=== PATIENT | male | born 1945 | race Caucasian/White ===

== ENCOUNTER 2017-10-26 20:05 | Emergency (ER) | payer MEDICARE ==
[2017-10-26] MEDS ORDERED: cloNIDine 0.1 MG TAB ONE (21:16)
[2017-10-26] MEDS ORDERED: Lisinopril 10 MG TAB ONE (21:16)
== END 2017-10-26 23:04 | disposition home or self-care (01) ==
LOC: SCSER 20:05
DX: I10 Essential (primary) hypertension (principal); F17.210 Nicotine dependence, cigarettes, uncomplicated
CPT/HCPCS: 99283

== ENCOUNTER 2017-12-22 13:00 | Inpatient (IN) | payer MEDICARE ==
[2017-12-25] MEDS ORDERED: CEFAZOLIN/Water 2 GM/20 ML SYRINGE ONE (06:12)
[2017-12-25] MEDS ORDERED: Heparin 5,000 UNITS/ML VIAL ONE ×2 (06:47→10:56)
[2017-12-25] MEDS ORDERED: Protamine Sulfate 50 MG/5 ML VIAL ONE (06:47)
[2017-12-25] MEDS ORDERED: Midazolam HCl 2 mg/2 ml Vial ONE (06:57)
[2017-12-25] MEDS ORDERED: Fentanyl 100 MCG/2 ML VIAL ONE (06:57)
[2017-12-25] MEDS ORDERED: PHENYLEPHRINE-NS 100 MCG/ML 10 ML SYRINGE ONE ×2 (06:58→14:25)
[2017-12-25] MEDS ORDERED: Heparin 10,000 UNITS/1 ML VIAL 30,000 UNITS in Sodium Chloride 0.9% 1,000 ML FS SCH (07:00)
[2017-12-25] MEDS ORDERED: HYDROcodone/Acetaminophen 5/325 mg Tablet PO PRN ×2 (08:26)
[2017-12-25] MEDS ORDERED: Ondansetron HCl/PF 4 MG/2 ML Vial IVP PRN (08:26)
[2017-12-25] MEDS ORDERED: Acetaminophen 325 MG TAB PO PRN (08:26)
[2017-12-25] MEDS ORDERED: Fentanyl 100 MCG/2 ML VIAL SLOW IVP PRN (08:26)
[2017-12-25] MEDS ORDERED: Promethazine HCl 25 MG/ML VIAL PR PRN (08:26)
[2017-12-25] MEDS ORDERED: Promethazine HCl 25 MG/ML VIAL IM PRN (08:26)
[2017-12-25] MEDS ORDERED: Rocuronium Bromide 50 MG/5 ML VIAL ONE (08:58)
[2017-12-25] MEDS ORDERED: Albumin 5% 500 ML ONE (10:42)
[2017-12-25] MEDS ORDERED: ePHEDrine/0.9% NaCl/PF SYRINGE 50 mg/10 ml ONE ×2 (12:59→14:25)
--- NOTE | 2017-12-25 13:45 | OP ---
DATE OF PROCEDURE: 12/25/2017 PROCEDURE PERFORMED: Left subclavian central line placement, repair of left femoral pseudoaneurysm w ith 8 mm Hemashield, reimplantation of profunda femoris, and superficial femoral arteries. PREOPERATIVE DIAGNOSIS: Left femoral pseudoaneurysm, status post aortobifemoral bypass. POSTOPERATIVE DIAGNOSIS: Left femoral pseudoaneurysm, status post aortobifemoral bypass. SURGEON: Rubio Gonzalez M.D. ANESTHESIA: General endotracheal anesthesia. INDICATIONS: The patient is a 72-year-old man who many years ago underwent an aortobifemoral bypass and has already had a pseudoaneurysm of the right groin repaired several years ago. Over the last 2 years, he has had increasing size of a pulsatile bulge in the left groin consistent with pseudoaneury sm. CT angiography and ultrasonography confirmed that he is now taken to the operating room for repa ir. FINDINGS: Complete disruption of the graft. A large profunda femoris with good backbleeding, relati vely small SFA with near complete occlusion proximally, but patent at the midportion with good back b leeding. A #5 Deanna catheter could be passed at 1 or 2 handbreadths below the knee. Post-procedur e, he had a palpable popliteal pulse, but not palpable pedal pulses. NARRATIVE REPORT: After informed consent was obtained, the patient was taken to the operating room a nd placed in supine position on the operating table. After induction of general anesthesia, the andres ent was placed in Trendelenburg and his left upper chest was prepped and draped in sterile fashion by the Seldinger technique. A triple-lumen central line kit was used to place the left subclavian cent ral line for secure IV access in addition to his peripheral access. The line was secured and dressed . The patient's torso, groins and lower extremities were then prepped and draped in sterile fashion. A curvilinear incision paralleling the left iliac fossa was made with a scalpel and electrocautery. The fibers of the external and internal obliques were divided and retroperitoneal plane was develop ed to expose the [place] vasculature in the graft. Combination of sharp electrocautery and blunt diss ection was used to isolate the [place] external iliac and left limb of the graft. Both were looped wi th umbilical tapes and then attention was turned to the groin. A longitudinal incision was made dist al to the bulge and skin. Superficial femoral artery was identified deep to that and then followed u p along the plane of Leriche, pseudoaneurysm capsule was identified and it was exposed through sharp dissection. The superficial femoral artery was looped for distal control and then when the profunda could be identified, the veins overlying it were ligated and divided and the profunda was looped. Af ter adequate circulation time of heparin, proximal and distal control was achieved with vessel loops in the groin and a vascular clamp in the iliac fossa. The pseudoaneurysm was then entered and thromb otic material was evacuated. Backbleeding from the remnant of the orifice of the common femoral were the disrupted grafted at one point had been anastomosed and it was controlled with sucker. An attem pt was made briefly to intubate that orifice with a #5 Deanna catheter for endoluminal control, but the catheter could not be threaded. With direct pressure held there, the pseudoaneurysm capsule was dissected out more and excised. The profunda was followed proximally and could be appreciated that w hat had been loop was a very small branch of the profunda, it was followed more proximally to a rathe r large vessel and on clamping yet achieved adequate control. The disrupted aortobifemoral graft is identified and dissected out and mobilized, it was freshened up with scissors. An 8 mm Hemashield gr aft was beveled to make for size match and then anastomosed end-to-end to the old graft that suture l ine appeared to be hemostatic when tested. The profunda was then spatulated to match an oblique christensen section of the new graft and end-to-end anastomosis was constructed there. Upon examination of the s uperficial femoral, it was somewhat rubbery, proximally it felt hard and completely occluded, but whe n followed it more distally it got soft. It was opened distally and #5 Deanna catheter could be pas sed well below the knee and there was good back bleeding from it. The transected stumps were oversew n and then a longitudinal arteriotomy was made in the mid SFA after controlling it distally with a va scular clamp. A segment of residual 8 mm graft material was anastomosed there end-to-side and then v ascular clamps were reapplied to the new graft material to the profunda and that length of graft to t he SFA was brought off of that graft. The vascular controls were released. Protamine was administer ed. When hemostasis was adequate, the wounds were irrigated. The iliac fossa wound was closed with #1 PDS for the fascial layers and subcutaneous and subcuticular Vicryl. The groin wound was irrigate d and closed in layers subcutaneous and subcuticular Vicryl. Both incisions were then reinforced wit h running nylon skin suture. The wounds were dressed and the patient was taken to the recovery area in stable condition. Estimated blood loss during the procedure was 1000 mL. The patient received 2500 mL of crystalloid a nd 500 mL of 5% albumin and a 778 mL of Cell Saver transfusion. Urine output was 615 mL. Instrument , needle, and sponge counts were correct.
[2017-12-25 13:55] LABS: Hemoglobin 11.7 g/dL (14.0-18.0); Mean Corpuscular HGB CONC 32.4 g/dL (32.0-36.0); Mean Corpuscular Hemoglobin 30.8 pg (27.0-31.0); Mean Corpuscular Volume 95.1 fl (80.0-94.0); Mean Platelet Volume 8.3 fL (7.4-10.4); Platelet Count 166 thou/uL (130-400); RBC Distribution Width 12.8 % (11.5-14.5); Red Blood Cell (RBC) Count 3.79 mill/uL (4.70-6.10); White Blood Cell (WBC) Count 20.2 thou/uL (4.8-10.8)
[2017-12-25 14:14] LABS: Band 8 % (5-11); Lymphocytes 7 % (21-51); MDiff Complete? YES; Monocytes 2 % (0-10); Neutrophil 83 % (42-75); PLT Morphology Comment Appears Adequate
[2017-12-25 14:17] LABS: Anion Gap 9 mmol/L (10-20); BUN (Urea Nitrogen) 16 mg/dL (8.4-25.7); Calc. Creatinine Clearance 73 mL/min (70-130); Calcium 7.3 mg/dL (7.8-10.44); Carbon Dioxide 22 mmol/L (23-31); Chloride 108 mmol/L (98-107); Estimated GFR-MDRD 81; Glucose 148 mg/dL (83-110); Potassium 4.2 mmol/L (3.5-5.1); Sodium 135 mmol/L (136-145)
[2017-12-25] MEDS ORDERED: Heparin 10,000 UNITS/ 10 ML VIAL ONE (14:25)
[2017-12-25] MEDS ORDERED: PROPOFOL 200 MG/20 ML VIAL ONE (14:25)
[2017-12-25] MEDS ORDERED: Glycopyrrolate 0.2 MG/ML 5 ML SYRINGE ONE (14:25)
[2017-12-25] MEDS ORDERED: Lidocaine 1% PF 5 ML VIAL ONE (14:25)
--- NOTE | 2017-12-25 14:45 | RAD ---
AP CHEST: Indication: Post line insertion. Comparison: 12-12-17 FINDINGS: There is a new left subclavian central venous catheter. There is post-surgical change of a prior CABG . No confluent airspace opacity is evident. No pleural effusion or pneumothorax. No acute osseous abn ormality is evident. IMPRESSION: No acute abnormality. POS: [facility]
[2017-12-25 14:47] VITALS: BMI 26.4
[2017-12-25] MEDS: Sodium Chloride 0.9% 1,000 ML IV SCH ×2 (15:09→21:24)
[2017-12-25] MEDS: Amlodipine 5 MG TAB PO SCH (15:11)
[2017-12-25] MEDS: Hydrochlorothiazide 25 MG TAB PO SCH (15:27)
[2017-12-25] MEDS: Lisinopril 20 MG TAB PO SCH (15:27)
[2017-12-25] MEDS: Atenolol 50 MG TAB PO SCH (15:27)
[2017-12-25] MEDS: NIFEdipine XL 30 MG TAB PO SCH (17:05)
[2017-12-25] MEDS: Atorvastatin Calcium 40 MG TAB PO SCH (21:21)
[2017-12-26] MEDS: Sodium Chloride 0.9% 1,000 ML IV SCH (02:25)
[2017-12-26 06:00] LABS: #Basophils 0.1 thou/uL (0.0-0.2); #Lymphocytes 0.7 thou/uL (1.20-3.40); #Monocytes 0.7 thou/uL (0.11-0.59); #Neutrophils 14.1 thou/uL (1.40-6.50); %Basophils 0.3 % (0.0-1.0); %Eosinophils 0.2 % (0.0-10.0); %Lymphocytes 4.7 % (21.0-51.0); %Monocytes 4.4 % (0.0-10.0); %Neutrophils 90.4 % (42.0-75.0); Hemoglobin 10.6 g/dL (14.0-18.0); Mean Corpuscular HGB CONC 32.8 g/dL (32.0-36.0); Mean Corpuscular Hemoglobin 31.3 pg (27.0-31.0); Mean Corpuscular Volume 95.5 fl (80.0-94.0); Mean Platelet Volume 8.5 fL (7.4-10.4); Platelet Count 136 thou/uL (130-400); RBC Distribution Width 12.8 % (11.5-14.5); Red Blood Cell (RBC) Count 3.38 mill/uL (4.70-6.10); White Blood Cell (WBC) Count 15.6 thou/uL (4.8-10.8)
[2017-12-26 06:36] LABS: Anion Gap 11 mmol/L (10-20); BUN (Urea Nitrogen) 18 mg/dL (8.4-25.7); Calc. Creatinine Clearance 76 mL/min (70-130); Calcium 8.1 mg/dL (7.8-10.44); Carbon Dioxide 25 mmol/L (23-31); Chloride 104 mmol/L (98-107); Estimated GFR-MDRD 78; Glucose 189 mg/dL (83-110); Potassium 4.5 mmol/L (3.5-5.1); Sodium 135 mmol/L (136-145)
[2017-12-26] MEDS: Amlodipine 5 MG TAB PO SCH (07:44)
[2017-12-26] MEDS: Atenolol 50 MG TAB PO SCH (07:44)
[2017-12-26] MEDS: Aspirin 325 MG TAB PO SCH (07:44)
[2017-12-26] MEDS: Hydrochlorothiazide 25 MG TAB PO SCH (07:45)
[2017-12-26] MEDS: NIFEdipine XL 30 MG TAB PO SCH (07:45)
[2017-12-26] MEDS: Lisinopril 20 MG TAB PO SCH (07:45)
[2017-12-26] MEDS ORDERED: Prevnar 13-Val Conj/PF 0.5 ML SYRINGE IM ONE (09:00)
--- NOTE | 2017-12-26 12:59 | CON ---
DATE OF CONSULTATION: 12/26/2017 HISTORY OF PRESENT ILLNESS: This is a 72-year-old gentleman postop in the ICU. Mr. Carl underwent a left femoral pseudoaneurysm repair. He is status post aortobifemoral bypass. He has had previous right-sided pseudoaneurysm repair done in the past, previous bypass surgery done . Postoperatively, he is doing well. He states he smokes about 3/4 pack a day for most of his life. He tells me, he is now going to quit smoking. Denies any cough, chest pain, chills, sweats, hemoptysis, wheezing, orthopnea or PND. PAST MEDICAL HISTORY: Pertinent for hypertension, coronary artery disease, peripheral vascular disea se, tobacco abuse. PAST SURGICAL HISTORY: Stent repair in the right femoral, colonoscopy, back surgery, CABG. Recent T emple visit, some kind of surgery in [place]. MEDICATIONS: His list of medicine are nifedipine 30, magnesium, lisinopril, vitamin, Lipitor 40, Ten ormin 50, aspirin, Norvasc 10. ALLERGIES: PLAVIX. 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 FAMILY HISTORY: Unremarkable. SOCIAL HISTORY: Otherwise unremarkable. REVIEW OF SYSTEMS: Ten point negative. PHYSICAL EXAMINATION: GENERAL: He is in no distress. VITAL SIGNS: Sats are 98, pulse 71, blood pressure 158/92. CHEST: No wheezing, no crackles. CARDIAC: Normal S1, S2. No gallops. ABDOMEN: Soft, no masses. LABORATORY DATA AND IMAGING: White count 15,000, H&H 10 and 32, platelet count is normal. Electroly kian are normal. X-ray was clear. Please note, I reviewed all his x-rays, images and report myself. I have reviewed all his past medical records. History is obtained entirely from the patient and the at the bedside. IMPRESSION: 1. Status post left pseudoaneurysm repair. 2. Hypertension. 3. coronary artery disease. 4. Peripheral vascular disease. 5. Tobacco abuse. PLAN: Once again, he was told strongly to refrain from smoking. Doing well. Continue neb treatment s, supportive care, PT. We will follow while in the ICU. Note, this is a consultation note 70 minutes in which 50% of time direct patient care at the bedside.
[2017-12-26] MEDS: Atorvastatin Calcium 40 MG TAB PO SCH (22:03)
[2017-12-27 06:14] VITALS: BP 169/74; TEMP 98.1
--- NOTE | 2017-12-27 07:16 | DIS ---
DATE OF ADMISSION: 12/25/2017 DATE OF DISCHARGE: 12/27/2017 PRINCIPAL DIAGNOSES: Left femoral pseudoaneurysm, status post aortobifemoral bypass grafting. PROCEDURES PERFORMED: Repair of left femoral pseudoaneurysm with 8 mm Hemashield graft, reimplantati on of profunda femoris and superficial femoral arteries on 12/25/2017. HISTORY OF PRESENT ILLNESS/HOSPITAL COURSE: The patient is a 72-year-old man who almost 20 years ago underwent aortobifemoral bypass grafting. He developed a right femoral pseudoaneurysm that required repair a few years ago and over the last couple of years he has been having increasing size of a pul satile bulge in the left groin. Physical exam and noninvasive imaging studies demonstrated the vascu lar nature of this consistent with a femoral pseudoaneurysm in association with the distal anastomosi s of that limb of the graft. He was brought in electively and underwent repair using a left iliac fo ssa incision to have retroperitoneal exposure to gain proximal control and then a hockey stick shaped incision in the proximal left thigh to gain distal control and then access to the disrupted limb of the aortobifemoral graft and the [place] vasculature. Length of 8 mm Hemashield graft was used to homar stomose the limb of the AVF graft to the profunda and then a second length of graft was taken from th at interposition graft down to the mid SFA. He had an uneventful overnight recovering in the Intensi ve Care Unit and was transferred to the telemetry unit on postoperative day #1. Today on postoperati ve day 2, he remains afebrile off of oxygen and getting around well. His wounds are clean and dry wi thout significant swelling and only a modest amount of bruising. He now has a palpable dorsalis pedi s pulse in his foot. He denies any leg weakness or paresthesias. I will plan on seeing him in the [facility] in around 10-14 days. I have described to him that it is permissible to shower and to gently w carmita the incisions, but to keep the wounds clean and dry and not soak in a tub bath. I have written h im a prescription for Vicodin as needed for pain and he is to resume his home medications.
[2017-12-27] MEDS: NIFEdipine XL 30 MG TAB PO SCH (08:01)
[2017-12-27] MEDS: Amlodipine 5 MG TAB PO SCH (08:01)
[2017-12-27] MEDS: Hydrochlorothiazide 25 MG TAB PO SCH (08:01)
[2017-12-27] MEDS: Atenolol 50 MG TAB PO SCH (08:01)
[2017-12-27] MEDS: Aspirin 325 MG TAB PO SCH (08:01)
[2017-12-27] MEDS: Lisinopril 20 MG TAB PO SCH (08:01)
== END 2017-12-27 10:34 | disposition home or self-care (01) | DRG 272 ==
LOC: SURG A 12-25 05:42 → CCU 12-25 13:45 → 2NO 12-26 20:31
PROVIDERS: ADMIT Thoracic Surgery (Cardiothoracic Vascular Surgery); ATTEND Thoracic Surgery (Cardiothoracic Vascular Surgery)
PROC: 04VL3DZ Restriction of Left Femoral Artery with Intraluminal Device, Percutaneous Approach (ICD-10-PCS; principal; 2017-12-25)
PROC: 05HY33Z Insertion of Infusion Device into Upper Vein, Percutaneous Approach (ICD-10-PCS; 2017-12-25)
DX: I72.4 Aneurysm of artery of lower extremity (principal); E78.2 Mixed hyperlipidemia; F17.210 Nicotine dependence, cigarettes, uncomplicated; I73.9 Peripheral vascular disease, unspecified; I10 Essential (primary) hypertension; I25.10 Atherosclerotic heart disease of native coronary artery without angina pectoris; Z95.1 Presence of aortocoronary bypass graft
CPT/HCPCS: 36415; 71045; 71046; 80048; 80076; 85025; 85027; 85610; 86850; 86900; 86901; 88304; 88305; 93005; 93010; A4216; C1769; G8978-GP-CL; G8979-GP-CJ; J1642; J1644; J2001; J2250; J2704; J2720; J3010; J7050; P9045

== ENCOUNTER 2017-12-22 13:04 | Outpatient (CLI) | payer MEDICARE ==
[2017-12-22 14:30] LABS: Hemoglobin 14.4 g/dL (14.0-18.0); Mean Corpuscular HGB CONC 34.1 g/dL (32.0-36.0); Mean Corpuscular Hemoglobin 31.5 pg (27.0-31.0); Mean Corpuscular Volume 92.6 fl (80.0-94.0); Mean Platelet Volume 7.9 fL (7.4-10.4); Platelet Count 294 thou/uL (130-400); RBC Distribution Width 12.4 % (11.5-14.5); Red Blood Cell (RBC) Count 4.57 mill/uL (4.70-6.10); White Blood Cell (WBC) Count 14.7 thou/uL (4.8-10.8)
[2017-12-22 14:34] LABS: INR-International Normal Ratio 0.9; Prothrombin Time 12.6 SEC (12.0-14.7)
[2017-12-22 14:53] LABS: ALT (SGPT) 30 U/L (8-55); AST (SGOT) 23 U/L (5-34); Albumin 4.1 g/dL (3.4-4.8); Alkaline Phosphatase 77 U/L (40-150); Anion Gap 14 mmol/L (10-20); BUN (Urea Nitrogen) 24 mg/dL (8.4-25.7); Bilirubin, Direct 0.2 mg/dL (0.1-0.3); Bilirubin, Total 0.4 mg/dL (0.2-1.2); Calc. Creatinine Clearance 0 mL/min (70-130); Calcium 9.6 mg/dL (7.8-10.44); Carbon Dioxide 25 mmol/L (23-31); Chloride 96 mmol/L (98-107); Estimated GFR-MDRD 69; Glucose 107 mg/dL (83-110); Potassium 3.9 mmol/L (3.5-5.1); Protein, Total 7.2 g/dL (5.8-8.1); Sodium 131 mmol/L (136-145)
--- NOTE | 2017-12-22 14:59 | RAD ---
PA AND LATERAL VIES CHEST: HISTORY: Preoperative evaluation. FINDINGS: There are changes of median sternotomy. The heart size is normal. The aorta is tortuous. The lungs are expanded without focal areas of consolidation, pneumothorax, or pleural effusions. There are de generative changes in the spine. IMPRESSION: No radiographic evidence of acute cardiopulmonary process. POS: [facility]
--- NOTE | 2018-02-25 08:34 | EKG ---
Test Reason : Blood Pressure : / mmHG Vent. Rate : 058 BPM Atrial Rate : 058 BPM P-R Int : 164 ms QRS Dur : 086 ms QT Int : 386 ms P-R-T Axes : 079 060 063 degrees QTc Int : 378 ms Sinus bradycardia with sinus arrhythmia Otherwise normal ECG When compared with ECG of 09-JUN-2006 17:17, Nonspecific T wave abnormality, worse in Anterior leads QT has shortened Confirmed by MAXINE MANLEY, HARLEY ([id number]) on 02/25/2018 8:33:55 AM Referred By: CHRIS Confirmed By:HARLEY GOODMAN MD
== END 2017-12-22 13:05 | disposition home or self-care (01) ==
LOC: LABBT 13:04
PROVIDERS: ATTEND Thoracic Surgery (Cardiothoracic Vascular Surgery)
DX: Z01.818 Encounter for other preprocedural examination (principal); I72.4 Aneurysm of artery of lower extremity
CPT/HCPCS: 71046; 80048; 80076; 85027; 85610; 86850; 86900; 86901; 93005; 93010

== ENCOUNTER 2019-02-07 18:15 | Inpatient (IN) | payer MEDICARE ==
[~2019-02-07 18:15] MED LIST: ISOVUE-370 76%-LOCM 1 ML ONE
[2019-02-07 18:51] LABS: #Basophils 0.1 thou/uL (0.0-0.2); #Eosinphils 0.2 thou/uL (0.0-0.7); #Lymphocytes 2.7 thou/uL (1.20-3.40); #Monocytes 0.8 thou/uL (0.11-0.59); #Neutrophils 10.8 thou/uL (1.40-6.50); %Basophils 0.7 % (0.0-1.0); %Eosinophils 1.5 % (0.0-10.0); %Lymphocytes 18.4 % (21.0-51.0); %Monocytes 5.8 % (0.0-10.0); %Neutrophils 73.6 % (42.0-75.0); Hemoglobin 12.7 g/dL (14.0-18.0); Mean Corpuscular HGB CONC 34.5 g/dL (32.0-36.0); Mean Corpuscular Hemoglobin 32.3 pg (27.0-31.0); Mean Corpuscular Volume 93.7 fL (78.0-98.0); Mean Platelet Volume 7.5 fL (7.4-10.4); Platelet Count 224 thou/uL (130-400); RBC Distribution Width 12.1 % (11.5-14.5); Red Blood Cell (RBC) Count 3.92 mill/uL (4.70-6.10); White Blood Cell (WBC) Count 14.6 thou/uL (4.8-10.8)
[2019-02-07 18:57] LABS: INR-International Normal Ratio 1.1; PTT 28.6 SEC (22.9-36.1); Prothrombin Time 13.8 SEC (12.0-14.7)
[2019-02-07 19:04] LABS: ALT (SGPT) 20 U/L (8-55); AST (SGOT) 16 U/L (5-34); Albumin 4.2 g/dL (3.4-4.8); Alkaline Phosphatase 66 U/L (40-150); Anion Gap 12 mmol/L (10-20); BUN (Urea Nitrogen) 29 mg/dL (8.4-25.7); Bilirubin, Total 0.4 mg/dL (0.2-1.2); Calc. Creatinine Clearance 0 mL/min (70-130); Calcium 9.2 mg/dL (7.8-10.44); Carbon Dioxide 25 mmol/L (23-31); Chloride 96 mmol/L (98-107); Estimated GFR-MDRD 46; Globulin 2.3 g/dL (2.4-3.5); Glucose 207 mg/dL (83-110); Potassium 4.3 mmol/L (3.5-5.1); Protein, Total 6.5 g/dL (5.8-8.1); Sodium 129 mmol/L (136-145)
[2019-02-07] MEDS ORDERED: Aspirin 325 MG TAB ONE (21:20)
[2019-02-07 22:21] VITALS: BMI 25.1
[2019-02-07] MEDS ORDERED: hydrALAZINE 20 MG/ML VIAL SLOW IVP PRN (23:11)
[2019-02-07] MEDS ORDERED: Acetaminophen 325 MG TAB PO PRN (23:11)
[2019-02-07] MEDS: Sodium Chloride 0.9% 1,000 ML IV SCH (23:26)
--- NOTE | 2019-02-08 03:08 | HP ---
PRIMARY CARE PHYSICIAN: CHIEF COMPLAINT: "I had an attack while I was visiting my friend." HISTORY OF PRESENT ILLNESS: Mr. Carl is a pleasant 73-year-old gentleman, who has a history of hypertension as well as severe peripheral vascular disease. He was visiting a friend at a earlier today in the [place] area when he says he suddenly had "an attack" and he describes this attack that he was sweating on his head, face and arms and then became "incoherent." He says that he is not sure if he could or could not talk and he says his right leg got weak like he could not hold weight. His friend noticed what was going on and took him to the emergency room in [place], at [facility]. There, they did a CT scan of the brain, which did not show any stroke, but recommended that he go to "a larger hospital" to have further evaluation. He is from the [facility] and has had vascular surgery here and so he asked his friend to bring him to the hospital here at [place]. He says this attack lasted about 30 minutes. During this time, he denied having any chest pain or shortness of breath. No dyspnea on exertion and essentially no other symptoms other than the right leg weakness and inability to talk. Right now, the patient is back to his baseline and he states nothing like this has ever happened to him before. REVIEW OF SYSTEMS: All systems were reviewed and are negative except for that mentioned in the history of present illness. PAST MEDICAL HISTORY: Significant for hypertension, coronary artery disease, peripheral vascular disease, and tobacco abuse. PAST SURGICAL HISTORY: He has had an aortofemoral bypass as well as back surgery, colonoscopy, a stent placed in his right femoral artery and coronary artery bypass grafting. ALLERGIES: TO PLAVIX, WHICH CAUSED ITCHING. 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 He smokes about a pack a day. He says since he was " ," but it has been at least for 50 years. He is and has two children, but says that they "do not have anything to do with him." His medical power of employment attorney is his good friend, Mr. Gaetano Garza, and he would like to be a full code, but does not want to be on life support for any long length of time. FAMILY HISTORY: He says he has no history of any heritable diseases. CURRENT MEDICATIONS: Include; 1. Nifedipine extended release 30 mg daily. 2. Magnesium oxide 400 mg daily. 3. Lisinopril/hydrochlorothiazide 20/12.5 one tablet daily. 4. Vitamin D3, 5000 units daily. 5. Lipitor 40 mg daily. 6. Aspirin 325 mg p.o. daily. 7. Amlodipine 10 mg daily. PHYSICAL EXAMINATION: GENERAL: He is alert and oriented. He appears to be in no acute distress. He is well developed and well nourished. VITAL SIGNS: Blood pressure was 179/76, heart rate 62, respiratory rate of 16, temperature is 97.4, and O2 saturation is 96% on room air. HEENT: His pupils are equal, round, and reactive to light. Extraocular muscles are intact. Sclerae anicteric. Throat, there is no erythema. No exudates. NECK: No adenopathy. No appreciable bruits. LUNGS: Clear to auscultation bilaterally. There is no wheezing. No rales. No rhonchi. CARDIOVASCULAR: He had a normal S1 and S2. I did not appreciate an S3 or S4. There are no murmurs or clicks. No rubs. ABDOMEN: Obese. He has a midline abdominal scar as well as other horizontal surgical scar. He has some abdominal wall hernia, but is easily reducible. There is no organomegaly. Positive for bowel sounds. No rebound or guarding. EXTREMITIES: There is no clubbing, cyanosis. No edema. No joint effusions. NEUROLOGIC: His cranial nerves 2 through 12 are grossly intact. His muscle strength is 5/5 in both his upper and lower extremities. It was grossly nonfocal. SKIN AND INTEGUMENT: He had a little naga-sized area on the right foot on the dorsum, which was a bit scaly, but clear and hyperkeratotic. He has spoon-like nails, but otherwise no other significant skin or new lesions. LABORATORY DATA: Lab results, sodium is 129, potassium 4.3, chloride is 96, CO2 is 25, BUN of 29, creatinine 1.49, glucose is 207. White blood cell count 14.6, hemoglobin 12.7, hematocrit is 36.7, and platelet count is 224. INR is 1.1. ASSESSMENT: This is a pleasant 73-year-old gentleman, who presents to the emergency room with sudden onset of right leg weakness and some aphasia. He had a CT angiogram in our ER, which showed significant vascular disease in both carotid arteries as well as the vertebral arteries. This episode likely represents a transient ischemic attack with severe cerebrovascular disease. 1. For the transient ischemic attack, we will continue full dose aspirin since the patient is allergic to Plavix. We will consult, Dr. Gonzalez, who has seen him in the past with regard to the severe cerebrovascular disease. We will place him on a high-dose statin. 2. The patient is also noted to have hyponatremia. I suspect he could be volume depleted as his BUN and creatinine are elevated and therefore, we will place him on some normal saline and recheck in the a.m. 3. Acute kidney injury. Again, I suspect volume depletion and hopefully, this will resolve with hydration. 4. Hypertension. We will continue his usual antihypertensive medications as well as medications p.r.n. 5. Tobacco abuse. He has been counseled on the need for smoking cessation and he states he is aware and he will be placed on deep venous thrombosis as well as gastrointestinal prophylaxis. Job ID: [id number]
[2019-02-08 06:48] LABS: #Basophils 0.1 thou/uL (0.0-0.2); #Eosinphils 0.2 thou/uL (0.0-0.7); #Lymphocytes 2.3 thou/uL (1.20-3.40); #Monocytes 0.8 thou/uL (0.11-0.59); #Neutrophils 6.4 thou/uL (1.40-6.50); %Basophils 0.9 % (0.0-1.0); %Lymphocytes 23.5 % (21.0-51.0); %Neutrophils 65.7 % (42.0-75.0); Hemoglobin 11.9 g/dL (14.0-18.0); Mean Corpuscular HGB CONC 33.2 g/dL (32.0-36.0); Mean Corpuscular Hemoglobin 31.5 pg (27.0-31.0); Platelet Count 219 thou/uL (130-400); RBC Distribution Width 12.2 % (11.5-14.5); Red Blood Cell (RBC) Count 3.79 mill/uL (4.70-6.10); White Blood Cell (WBC) Count 9.7 thou/uL (4.8-10.8)
[2019-02-08 07:17] LABS: Anion Gap 10 mmol/L (10-20); BUN (Urea Nitrogen) 22 mg/dL (8.4-25.7); Calc. Creatinine Clearance 63 mL/min (70-130); Carbon Dioxide 24 mmol/L (23-31); Cardiac Risk 4.5 (Less than 4.5); Chloride 103 mmol/L (98-107); Cholesterol 116 mg/dl (< 200 Desired); Estimated GFR-MDRD 66; Glucose 86 mg/dL (83-110); HDL Cholesterol 26 mg/dL (>60 Neg Risk); LDL Cholesterol, Calculated 58 mg/dL; Sodium 133 mmol/L (136-145); Triglycerides 161 mg/dL (Less than 150)
--- NOTE | 2019-02-08 09:50 | MRI ---
MRI BRAIN WITHOUT CONTRAST: Multiplanar, multisequential imaging of the brain was obtained. INDICATION: Right side weakness. FINDINGS: Mild cortical volume loss. Ventricles have normal size and position. There are moderate chronic isc hemic white matter changes. Old lacunar infarct in the left periventricular white matter. Evidence of old cortical infarct involving the posterior inferior left cerebellum. There is no evidence of re stricted diffusion. No acute infarct or mass. No evidence of edema. No evidence of hemorrhage. Intracranial internal carotid arteries, proximal anterior cerebral, and posterior cerebral arteries s how flow voids. The basilar artery and proximal posterior cerebral arteries show flow voids. Mild stenosis in the posterior right parietal cortex and also gliosis in the right occipital cortex m ay represent old infarcts. IMPRESSION: No evidence of acute infarcts by MRI. There are chronic ischemic changes and evidence of old lacunar and cortical infarcts as described above. POS: [facility]
[2019-02-08] MEDS: NIFEdipine XL 30 MG TAB PO SCH (10:20)
[2019-02-08] MEDS: Enoxaparin Sodium 30 MG/0.3 ML SYRINGE SC SCH (10:22)
[2019-02-08] MEDS: Aspirin 325 mg Enteric Coated Tablet PO SCH (10:22)
--- NOTE | 2019-02-08 12:35 | CON ---
DATE OF CONSULTATION: 02/08/2019 CHIEF COMPLAINT: Difficulty speaking and right leg weakness. HISTORY OF PRESENT ILLNESS: The patient is a 73-year-old smoker with extensive vascular disease many years ago. He underwent an aortobifemoral bypass, and about a year ago, I repaired pseudoaneurysm involving the left femoral limb at the groin level. He had a previous repair of a similar pseudoaneurysm on the right side. He had known carotid disease that has been asymptomatic, but yesterday while drinking coffee, he became confused, unable to speak and felt his right leg go weak and spastic. While in the ambulance on the ride to the hospital, his symptoms resolved. He reports that over the last month he has had several episodes of similar right leg weakness, but this is the first episode involving his speech were associated with such profound confusion. The patient has not had any eye symptoms or any left body symptoms. PAST MEDICAL HISTORY: Significant for; 1. Coronary artery disease. 2. Hypertension. 3. Peripheral vascular disease. PAST SURGICAL HISTORY: Significant for; 1. Coronary artery bypass grafting in 2005. 2. Aortobifemoral bypass in 1991. 3. Repair of right femoral pseudoaneurysm in 2001. 4. Repair of left femoral pseudoaneurysm in 2017. 5. He has known bilateral carotid bruits in March of 2017. He had a carotid ultrasound that was reported as showing bilateral plaque, but no elevated velocities. There was retrograde left vertebral flow, consistent with his known left subclavian stenosis. In February of 2018, he had borderline velocities bilaterally with a peak systolic velocity of 133 on the right side and 119 on the left, but plaque visible in both carotid systems. He had retrograde flow in the left vertebral and antegrade flow in the right. HOME MEDICATIONS: 1. Lisinopril 20 and hydrochlorothiazide 12.5 one a day. 2. Lipitor 40 mg a day. 3. Norvasc 10 mg a day. 4. Nifedipine-XL 30 mg a day. 5. Adult Aspirin a day. ALLERGIES: HE REPORTS ITCHING WITH PLAVIX WHILE AT A PREVIOUS OFFICE VISIT. SOCIAL HISTORY: He reported having recently quit smoking. At this admission, he admits to a pack of cigarettes a day. FAMILY HISTORY: Significant for his mother having diabetes, but having lived age 93. His father lived age 86, cause of unknown. REVIEW OF SYSTEMS: Negative for any chest pain, any shortness of breath, or any claudication. PHYSICAL EXAMINATION: GENERAL: He is in no distress. VITAL SIGNS: He is 5 feet 8 inches, weighs 165-3/4 pounds, heart rate 66, blood pressure 170/76, temperature 98.1, and room air O2 saturations are 96%. HEENT: He has no xanthelasma. NECK: He has no JVD. He has bilateral carotid bruits. CHEST: Clear to auscultation. HEART: He has a regular rate and rhythm. ABDOMEN: Soft and nontender. VASCULAR: He has a palpable right radial pulse but not a palpable left one. Both femoral pulses are strong. NEUROLOGIC: Cranial nerves 2 through 12 are grossly intact as is upper and lower extremity strength. LABORATORY DATA: White count of 14.6, hemoglobin 12.7, hematocrit 36.7, and platelets 224,000. INR was 1.1 and PTT 28.6. This morning, mild abnormalities on his BMP, that is essentially normalized. His sodium was 129 yesterday, was 133 today; glucose 86; BUN, that was 29, is now 22; creatinine is 1.49, is now 1.10. IMAGING STUDIES: CTA shows plaque in both carotid systems. On the right side, there is probably about 70% or 80% lesion in the cervical carotid, but there is a stenosis at the petrous portion on the right. On the left, there was extensive plaque, but focal 50% or 60% lesion that appears to be ulcerated at the origin of the internal carotid. This is a separate lesion. There is a long calcified plaque compromising the lumina of the very distal internal carotid as it approaches the base of skull, that constitutes probably about 30% or 40% lesion. IMPRESSION AND RECOMMENDATIONS: Symptomatic left carotid stenosis. I will plan on left carotid endarterectomy in a staged fashion, the right side can be done, although the utility of right carotid endarterectomy for cervical disease given the simultaneous presence of petrous portion disease is a bit debatable. Job ID: [id number]
[2019-02-08] MEDS: Sodium Chloride 0.9% 1,000 ML IV SCH (14:55)
--- NOTE | 2019-02-08 19:08 | PDOC.PN ---
- Subjective Encounter Start Date: 02/08/19 Encounter Start Time: 11:00 Pt seen for followup re: TIA. Says he feels well. - Objective Resuscitation Status - Order Detail: 02/07/19 23:08 Resuscitation Status Routine Resuscitation Status: FULL: Full Resuscitation Vital Signs & Weight: Vital Signs (12 hours) Temp Pulse Resp BP BP Pulse Ox 02/08/19 15:50 98.4 F 62 18 171/76 H 96 02/08/19 14:45 60 173/77 H 02/08/19 12:00 97.7 F 62 16 185/78 H 96 02/08/19 10:20 66 170/76 H 02/08/19 08:00 98.1 F 66 20 171/74 H 96 Weight Weight 165 lb 4.8 oz I&O: 02/07/19 02/08/19 02/09/19 06:59 06:59 06:59 Intake Total 100 Balance 100 Result Diagrams: 02/08/19 05:07 02/08/19 05:07 Additional Labs: Accuchecks 02/07/19 18:25 POC Glucose 224 H Phys Exam - Physical Examination Constitutional: NAD HEENT: moist MMs, sclera anicteric, oral pharynx no lesions, 2+ tonsils Neck: no nodes, no JVD, supple, full ROM Respiratory: clear to auscultation bilateral Cardiovascular: RRR, no rub S1, S2 Gastrointestinal: soft, non-tender, no distention, positive bowel sounds Neurological: moves all 4 limbs Psychiatric: normal affect, A&O x 3 Dx/Plan (1) TIA (transient ischemic attack) Code(s): G45.9 - TRANSIENT CEREBRAL ISCHEMIC ATTACK, UNSPECIFIED Status: Acute Comment: continue aspirin and statin (2) Hyponatremia Code(s): E87.1 - HYPO-OSMOLALITY AND HYPONATREMIA Status: Acute Comment: sodium improved to 133 today (3) Carotid stenosis Code(s): I65.29 - OCCLUSION AND STENOSIS OF UNSPECIFIED CAROTID ARTERY Status : Acute Comment: plan for surgery on Monday (4) Dyslipidemia Code(s): E78.5 - HYPERLIPIDEMIA, UNSPECIFIED Status: Chronic Comment: continue statin (5) CAD (coronary artery disease) Code(s): I25.10 - ATHSCL HEART DISEASE OF [place] CORONARY ARTERY W/O ANG PCTRS Status: Chronic Comment: stable, continue aspirin (6) Tobacco abuse Code(s): Z72.0 - TOBACCO USE Status: Chronic Comment: pt counseled, start nicotine replacement therapy - Plan PT/OT, out of bed/ambulate * . Review of Systems - Review of Systems Constitutional: negative: fever, chills, sweats, weakness, malaise Respiratory: negative: Cough, Shortness of Breath, SOB with Excertion, Pleuritic Pain, Wheezing Cardiovascular: negative: chest pain, palpitations, orthopnea, paroxysmal nocturnal dyspnea, edema, light headedness Gastrointestinal: negative: Nausea, Vomiting, Abdominal Pain, Diarrhea, Constipation, Melena, Hematochezia Neurological: negative: Weakness, Numbness, Incoordination, Change in Speech, Confusion, Seizures - Medications/Allergies Allergies/Adverse Reactions: Allergies Allergy/AdvReac Type Severity Reaction Status Date / Time clopidogrel [From Plavix] Allergy Intermediate ITCHING Verified 12/22/17 13:36 Medications: Current Medications Acetaminophen (Tylenol) 650 mg PO Q4H PRN PRN Reason: Headache/Fever/Mild Pain (1-3) Aspirin (Ecotrin) 325 mg PO DAILY [facility] Last Admin: 02/08/19 10:22 Dose: 325 mg Atorvastatin Calcium (Lipitor) 80 mg PO HS [facility] Cefazolin Sodium (Cabg-Ancef) 2 gm SLOW IVP ONE [facility] Stop: 02/12/19 10:16 Enoxaparin Sodium (Lovenox) 30 mg SC 0900 [facility] Last Admin: 02/08/19 10:22 Dose: 30 mg Hydralazine HCl (Apresoline) 10 mg SLOW IVP Q4H PRN PRN Reason: BP > 220/110 Sodium Chloride (Normal Saline 0.9%) 1,000 mls @ 75 mls/hr IV .[id number] [facility] Last Admin: 02/08/19 14:55 Dose: 1,000 mls Nifedipine (Procardia Xl) 30 mg PO DAILY [facility] Last Admin: 02/08/19 10:20 Dose: 30 mg Sodium Chloride (Flush - Normal Saline) 10 ml IVF PRN PRN PRN Reason: Saline Flush
[2019-02-08] MEDS: Atorvastatin Calcium 40 MG TAB PO SCH (19:47)
[2019-02-08] MEDS: Nicotine 21 MG PATCH TD SCH (19:48)
[2019-02-09] MEDS: Sodium Chloride 0.9% 1,000 ML IV SCH ×3 (01:44→20:39)
[2019-02-09] MEDS: NIFEdipine XL 30 MG TAB PO SCH (09:15)
[2019-02-09] MEDS: Aspirin 325 mg Enteric Coated Tablet PO SCH (09:15)
[2019-02-09] MEDS: Enoxaparin Sodium 30 MG/0.3 ML SYRINGE SC SCH (09:16)
--- NOTE | 2019-02-09 13:25 | PDOC.PN ---
- Subjective Encounter Start Date: 02/09/19 Encounter Start Time: 07:20 Pt seen for followup re: TIA. No complaints today. - Objective Resuscitation Status - Order Detail: 02/07/19 23:08 Resuscitation Status Routine Resuscitation Status: FULL: Full Resuscitation Vital Signs & Weight: Vital Signs (12 hours) Temp Pulse Resp BP BP Pulse Ox 02/09/19 12:00 98.2 F 68 20 188/79 H 99 02/09/19 09:15 65 176/79 H 02/09/19 09:13 92 L 02/09/19 06:59 65 16 176/79 H 92 L 02/09/19 02:53 97.5 F L 85 14 132/67 95 Weight Weight 165 lb 4.8 oz I&O: 02/08/19 02/09/19 02/10/19 06:59 06:59 06:59 Intake Total 100 250 Balance 100 250 Result Diagrams: 02/08/19 05:07 02/08/19 05:07 Phys Exam - Physical Examination Constitutional: NAD HEENT: moist MMs Neck: supple Respiratory: clear to auscultation bilateral Cardiovascular: RRR Gastrointestinal: soft Neurological: moves all 4 limbs Psychiatric: normal affect Dx/Plan (1) TIA (transient ischemic attack) Code(s): G45.9 - TRANSIENT CEREBRAL ISCHEMIC ATTACK, UNSPECIFIED Status: Acute Comment: on aspirin and statin (2) Hyponatremia Code(s): E87.1 - HYPO-OSMOLALITY AND HYPONATREMIA Status: Acute Comment: improved (3) Carotid stenosis Code(s): I65.29 - OCCLUSION AND STENOSIS OF UNSPECIFIED CAROTID ARTERY Status : Acute Comment: plan for L CEA on Monday (4) Dyslipidemia Code(s): E78.5 - HYPERLIPIDEMIA, UNSPECIFIED Status: Chronic Comment: on statin (5) CAD (coronary artery disease) Code(s): I25.10 - ATHSCL HEART DISEASE OF [place] CORONARY ARTERY W/O ANG PCTRS Status: Chronic Comment: stable (6) Tobacco abuse Code(s): Z72.0 - TOBACCO USE Status: Chronic Comment: on nicotine replacement therapy - Plan * . Review of Systems - Review of Systems Respiratory: negative: Cough, Shortness of Breath, SOB with Excertion, Pleuritic Pain, Wheezing Cardiovascular: negative: chest pain, palpitations, orthopnea, paroxysmal nocturnal dyspnea, edema, light headedness Neurological: negative: Weakness, Numbness, Incoordination, Change in Speech, Confusion, Seizures - Medications/Allergies Allergies/Adverse Reactions: Allergies Allergy/AdvReac Type Severity Reaction Status Date / Time clopidogrel [From Plavix] Allergy Intermediate ITCHING Verified 12/22/17 13:36 Medications: Current Medications Acetaminophen (Tylenol) 650 mg PO Q4H PRN PRN Reason: Headache/Fever/Mild Pain (1-3) Amlodipine Besylate (Norvasc) 10 mg PO DAILY [facility] Aspirin (Ecotrin) 325 mg PO DAILY [facility] Last Admin: 02/09/19 09:15 Dose: 325 mg Atorvastatin Calcium (Lipitor) 80 mg PO HS [facility] Last Admin: 02/08/19 19:47 Dose: 80 mg Cefazolin Sodium (Cabg-Ancef) 2 gm SLOW IVP ONE [facility] Stop: 02/12/19 10:16 Enoxaparin Sodium (Lovenox) 30 mg SC 0900 [facility] Last Admin: 02/09/19 09:16 Dose: 30 mg Lisinopril/HCTZ (Prinizide 20-12.5) 1 tab PO DAILY [facility] Hydralazine HCl (Apresoline) 10 mg SLOW IVP Q4H PRN PRN Reason: BP > 220/110 Sodium Chloride (Normal Saline 0.9%) 1,000 mls @ 75 mls/hr IV .[id number] [facility] Last Admin: 02/09/19 04:34 Dose: 1,000 mls Nicotine (Nicoderm Patch) 21 mg TD Q24HR [facility] Last Admin: 02/08/19 19:48 Dose: Not Given Nifedipine (Procardia Xl) 30 mg PO DAILY [facility] Last Admin: 02/09/19 09:15 Dose: 30 mg Sodium Chloride (Flush - Normal Saline) 10 ml IVF PRN PRN PRN Reason: Saline Flush
[2019-02-09] MEDS: Atorvastatin Calcium 40 MG TAB PO SCH (20:38)
[2019-02-09] MEDS: Nicotine 21 MG PATCH TD SCH (23:45)
[2019-02-10] MEDS: Lisinopril/Hydrochlorothiazide 20 mg/12.5 mg Tablet PO SCH (09:12)
[2019-02-10] MEDS: Enoxaparin Sodium 30 MG/0.3 ML SYRINGE SC SCH (09:12)
[2019-02-10] MEDS: Amlodipine 10 MG TAB PO SCH (09:12)
[2019-02-10] MEDS: NIFEdipine XL 30 MG TAB PO SCH (09:12)
[2019-02-10] MEDS: Aspirin 325 mg Enteric Coated Tablet PO SCH (09:13)
[2019-02-10] MEDS ORDERED: Docusate 100 MG CAP PO SCH (10:45)
[2019-02-10] MEDS: Sodium Chloride 0.9% 1,000 ML IV SCH (10:56)
--- NOTE | 2019-02-10 13:31 | PDOC.PN ---
- Subjective Encounter Start Date: 02/10/19 Encounter Start Time: 07:20 Pt seen for followup re: TIA. No complaints today. - Objective Resuscitation Status - Order Detail: 02/07/19 23:08 Resuscitation Status Routine Resuscitation Status: FULL: Full Resuscitation MAR Reviewed: Yes Vital Signs & Weight: Vital Signs (12 hours) Temp Pulse Resp BP BP BP Pulse Ox 02/10/19 11:59 175/80 H 02/10/19 11:43 99.2 F 65 18 195/81 H 96 02/10/19 09:12 58 L 175/76 H 02/10/19 08:00 97 02/10/19 07:51 98.3 F 58 L 16 175/76 H 99 02/10/19 04:19 97.9 F 61 16 170/76 H 99 Weight Weight 165 lb 4.8 oz I&O: 02/09/19 02/10/19 02/11/19 06:59 06:59 06:59 Intake Total 250 3240 Balance 250 3240 Result Diagrams: 02/08/19 05:07 02/08/19 05:07 EKG Reviewed by me: Yes (Tele: NSR) Phys Exam - Physical Examination Constitutional: NAD HEENT: moist MMs Neck: supple Respiratory: clear to auscultation bilateral Cardiovascular: RRR Gastrointestinal: soft Neurological: moves all 4 limbs Psychiatric: normal affect Dx/Plan (1) TIA (transient ischemic attack) Code(s): G45.9 - TRANSIENT CEREBRAL ISCHEMIC ATTACK, UNSPECIFIED Status: Acute Comment: will continue aspirin and statin (2) Hyponatremia Code(s): E87.1 - HYPO-OSMOLALITY AND HYPONATREMIA Status: Acute Comment: improved, check labs in AM (3) Carotid stenosis Code(s): I65.29 - OCCLUSION AND STENOSIS OF UNSPECIFIED CAROTID ARTERY Status : Acute Comment: plan for L CEA tomorrow (4) Dyslipidemia Code(s): E78.5 - HYPERLIPIDEMIA, UNSPECIFIED Status: Chronic Comment: continue statin (5) CAD (coronary artery disease) Code(s): I25.10 - ATHSCL HEART DISEASE OF [place] CORONARY ARTERY W/O ANG PCTRS Status: Chronic Comment: stable (6) Tobacco abuse Code(s): Z72.0 - TOBACCO USE Status: Chronic Comment: on nicotine patch - Plan * . Review of Systems - Review of Systems Respiratory: negative: Cough, Shortness of Breath, SOB with Excertion, Pleuritic Pain, Wheezing Cardiovascular: negative: chest pain, palpitations, orthopnea, paroxysmal nocturnal dyspnea, edema, light headedness Neurological: negative: Weakness, Numbness, Incoordination, Change in Speech, Confusion, Seizures - Medications/Allergies Allergies/Adverse Reactions: Allergies Allergy/AdvReac Type Severity Reaction Status Date / Time clopidogrel [From Plavix] Allergy Intermediate ITCHING Verified 12/22/17 13:36 Medications: Current Medications Acetaminophen (Tylenol) 650 mg PO Q4H PRN PRN Reason: Headache/Fever/Mild Pain (1-3) Amlodipine Besylate (Norvasc) 10 mg PO DAILY [facility] Last Admin: 02/10/19 09:12 Dose: 10 mg Aspirin (Ecotrin) 325 mg PO DAILY [facility] Last Admin: 02/10/19 09:13 Dose: 325 mg Atorvastatin Calcium (Lipitor) 80 mg PO HS [facility] Last Admin: 02/09/19 20:38 Dose: 80 mg Cefazolin Sodium (Cabg-Ancef) 2 gm SLOW IVP ONE [facility] Stop: 02/12/19 10:16 Enoxaparin Sodium (Lovenox) 30 mg SC 0900 [facility] Last Admin: 02/10/19 09:12 Dose: 30 mg Lisinopril/HCTZ (Prinizide 20-12.5) 1 tab PO DAILY [facility] Last Admin: 02/10/19 09:12 Dose: 1 tab Hydralazine HCl (Apresoline) 10 mg SLOW IVP Q4H PRN PRN Reason: BP > 220/110 Sodium Chloride (Normal Saline 0.9%) 1,000 mls @ 75 mls/hr IV .[id number] [facility] Last Admin: 02/10/19 10:56 Dose: 1,000 mls Nicotine (Nicoderm Patch) 21 mg TD Q24HR [facility] Last Admin: 02/09/19 23:45 Dose: Not Given Nifedipine (Procardia Xl) 30 mg PO DAILY [facility] Last Admin: 02/10/19 09:12 Dose: 30 mg Sodium Chloride (Flush - Normal Saline) 10 ml IVF PRN PRN PRN Reason: Saline Flush
[2019-02-10] MEDS: Atorvastatin Calcium 40 MG TAB PO SCH (20:24)
[2019-02-10] MEDS: Nicotine 21 MG PATCH TD SCH (20:25)
[2019-02-11] MEDS: Sodium Chloride 0.9% 1,000 ML IV SCH ×2 (00:03→12:11)
[2019-02-11 06:00] LABS: #Basophils 0.1 thou/uL (0.0-0.2); #Eosinphils 0.2 thou/uL (0.0-0.7); #Lymphocytes 2.3 thou/uL (1.20-3.40); #Monocytes 0.8 thou/uL (0.11-0.59); #Neutrophils 5.1 thou/uL (1.40-6.50); %Basophils 1.2 % (0.0-1.0); %Eosinophils 2.4 % (0.0-10.0); %Monocytes 9.1 % (0.0-10.0); %Neutrophils 60.3 % (42.0-75.0); Hemoglobin 12.3 g/dL (14.0-18.0); Mean Corpuscular HGB CONC 33.2 g/dL (32.0-36.0); Mean Corpuscular Hemoglobin 31.7 pg (27.0-31.0); Mean Corpuscular Volume 95.4 fL (78.0-98.0); Mean Platelet Volume 7.5 fL (7.4-10.4); Platelet Count 190 thou/uL (130-400); RBC Distribution Width 12.1 % (11.5-14.5); Red Blood Cell (RBC) Count 3.87 mill/uL (4.70-6.10); White Blood Cell (WBC) Count 8.5 thou/uL (4.8-10.8)
[2019-02-11] MEDS: NIFEdipine XL 30 MG TAB PO SCH (06:14)
[2019-02-11] MEDS: Lisinopril/Hydrochlorothiazide 20 mg/12.5 mg Tablet PO SCH (06:14)
[2019-02-11] MEDS: Amlodipine 10 MG TAB PO SCH (06:14)
[2019-02-11] MEDS: Aspirin 325 mg Enteric Coated Tablet PO SCH (06:14)
[2019-02-11 06:21] LABS: Anion Gap 11 mmol/L (10-20); BUN (Urea Nitrogen) 14 mg/dL (8.4-25.7); Calc. Creatinine Clearance 70 mL/min (70-130); Calcium 8.7 mg/dL (7.8-10.44); Carbon Dioxide 24 mmol/L (23-31); Chloride 106 mmol/L (98-107); Estimated GFR-MDRD 74; Glucose 95 mg/dL (83-110); Potassium 3.8 mmol/L (3.5-5.1); Sodium 137 mmol/L (136-145)
[2019-02-11] MEDS ORDERED: Polyethylene Glycol 3350 17 GM Packet PO PRN (11:52)
[2019-02-11] MEDS ORDERED: Carvedilol 3.125 MG TAB PO SCH (12:00)
--- NOTE | 2019-02-11 15:53 | CON ---
DATE OF CONSULTATION: REASON FOR CONSULTATION: Preop clearance and nonsustained VT. HISTORY OF PRESENT ILLNESS: Mr. Carl is a very pleasant 73-year-old gentleman with a history of CAD, status post bypass surgery. He recently had a TIA. I was consulted due to 4 beats of nonsustained VT. From a CV standpoint, he denied chest pain, pressure, or associated symptoms. His bypass surgery was performed greater than 10 years ago. He also has had aortobifemoral bypass for severe underlying PVD. He states he has been quite active. No current symptoms. His recent echo did suggest a normal LVEF. PAST MEDICAL HISTORY: Continued tobacco abuse, otherwise as above. PAST SURGICAL HISTORY: 1. Aortobifemoral bypass. 2. Colonoscopy. ALLERGIES: PLAVIX. SOCIAL HISTORY: Continued tobacco abuse. MEDICATIONS: 1. Nifedipine. 2. Magnesium. 3. Lisinopril. 4. Vitamin D3. 5. Lipitor. 6. Aspirin. 7. Amlodipine. REVIEW OF SYSTEMS: A 10-point review of systems is reviewed as above, otherwise negative. PHYSICAL EXAMINATION: VITAL SIGNS: Blood pressure 180/79, pulse 69, temperature 98. GENERAL: The patient is a pleasant male, who is in no acute distress. The patient appears his stated age. NEUROLOGIC: The patient is alert and oriented x3 with no focal neurologic deficits. HEENT: Sclerae without icterus. Mouth has moist mucous membranes with normal pallor. NECK: No JVD. Carotid upstroke brisk. No bruits bilaterally. LUNGS: Clear to auscultation with unlabored respirations. BACK: No scoliosis or kyphosis. CARDIAC: Regular rate and rhythm with normal S1 and S2. No S3 or S4 noted. No significant rubs, murmurs, thrills, or gallops noted throughout the precordium. PMI is not displaced. There is no parasternal heave. ABDOMEN: Soft, nontender, nondistended. No peritoneal signs present. No hepatosplenomegaly. No abnormal striae. EXTREMITIES: 2+ femoral and 2+ dorsalis pedis pulses. No cyanosis, clubbing, or edema. SKIN: No gross abnormalities. PERTINENT LABORATORY DATA: Hemoglobin 12.3, white blood cell count 8.5, creatinine 0.99, sodium 137. Echo as above. IMPRESSION: 1. Preop clearance. 2. Nonsustained ventricular tachycardia. 3. Coronary artery disease. 4. Continued tobacco abuse. RECOMMENDATIONS: Mr. Carl has no current symptoms of angina. He denied significant shortness of breath. Given no current symptoms and normal LVEF, would proceed with surgery. We will check a magnesium level. He would benefit from a beta-pearl therapy. He is currently on a carvedilol 3.125 one p.o. b.i.d. Otherwise, I have no further recommendations. Job ID: [id number]
[2019-02-11] MEDS: Carvedilol 3.125 MG TAB PO SCH (18:15)
--- NOTE | 2019-02-11 19:37 | PDOC.PN ---
- Subjective Encounter Start Date: 02/11/19 Encounter Start Time: 09:00 Patient seen and examined for TIA/Carotid stenosis. No new focal deficits. No new complaints. No overnight events - Objective Resuscitation Status - Order Detail: 02/07/19 23:08 Resuscitation Status Routine Resuscitation Status: FULL: Full Resuscitation MAR Reviewed: Yes Vital Signs & Weight: Vital Signs (12 hours) Temp Pulse Resp BP Pulse Ox 02/11/19 16:00 98.7 F 63 16 174/75 H 97 02/11/19 11:35 98.9 F 69 18 184/79 H 95 02/11/19 08:00 97 02/11/19 07:47 98.2 F 61 18 183/77 H 97 Weight Weight 165 lb 4.8 oz I&O: 02/10/19 02/11/19 02/12/19 06:59 06:59 06:59 Intake Total 3240 2730 1300 Output Total 700 Balance 3240 2030 1300 Result Diagrams: 02/11/19 05:42 02/11/19 05:42 EKG Reviewed by me: Yes (Tele SR) Phys Exam - Physical Examination Constitutional: NAD Respiratory: no wheezing, no rhonchi Cardiovascular: RRR, no rub Gastrointestinal: soft, non-tender, positive bowel sounds Musculoskeletal: no edema Dx/Plan - Plan DVT proph w/lovenox, DVT proph w/SCDs 1. TIA 2. R ICA stenosis 3. SUSY on CKD 2/Hyponatremia 4. NSVT 5. PVD 6. CAD 7. HLD 8. Tob dep PLAN: Resume Coreg Cont ASA/Statins DC Procardia XL (Patient on Amlodipine) Add Hydralazine Reduce IVF Cont other meds as below Review of Systems - Review of Systems Respiratory: negative: Cough, Dry, Shortness of Breath, Hemoptysis, SOB with Excertion, Pleuritic Pain, Sputum, Wheezing Cardiovascular: negative: chest pain, palpitations, orthopnea, paroxysmal nocturnal dyspnea, edema, light headedness, other - Medications/Allergies Allergies/Adverse Reactions: Allergies Allergy/AdvReac Type Severity Reaction Status Date / Time clopidogrel [From Plavix] Allergy Intermediate ITCHING Verified 12/22/17 13:36 Medications: Current Medications Acetaminophen (Tylenol) 650 mg PO Q4H PRN PRN Reason: Headache/Fever/Mild Pain (1-3) Amlodipine Besylate (Norvasc) 10 mg PO DAILY [facility] Last Admin: 02/11/19 06:14 Dose: 10 mg Aspirin (Ecotrin) 325 mg PO DAILY [facility] Last Admin: 02/11/19 06:14 Dose: Not Given Atorvastatin Calcium (Lipitor) 80 mg PO HS [facility] Last Admin: 02/10/19 20:24 Dose: 80 mg Carvedilol (Coreg) 3.125 mg PO BID-[facility] Last Admin: 02/11/19 18:15 Dose: 3.125 mg Carvedilol (Coreg) 6.25 mg PO BID-[facility] Cefazolin Sodium (Cabg-Ancef) 2 gm SLOW IVP ONE [facility] Stop: 02/12/19 10:16 Lisinopril/HCTZ (Prinizide 20-12.5) 1 tab PO DAILY [facility] Last Admin: 02/11/19 06:14 Dose: 1 tab Hydralazine HCl (Apresoline) 10 mg SLOW IVP Q4H PRN PRN Reason: SBP Greater Than 180 Hydralazine HCl (Apresoline) 25 mg PO TID [facility] Sodium Chloride (Normal Saline 0.9%) 1,000 mls @ 50 mls/hr IV .Q20H [facility] Last Admin: 02/11/19 12:11 Dose: 1,000 mls Polyethylene Glycol (Miralax) 17 gm PO DAILY PRN PRN Reason: Constipation Last Admin: 02/11/19 12:11 Dose: 17 gm Senna/Docusate Sodium (Senokot S) 1 tab PO BID [facility] Sodium Chloride (Flush - Normal Saline) 10 ml IVF PRN PRN PRN Reason: Saline Flush
[2019-02-11] MEDS: Atorvastatin Calcium 40 MG TAB PO SCH (20:18)
[2019-02-11] MEDS: hydrALAZINE 25 MG TAB PO SCH (20:18)
[2019-02-11] MEDS: Senokot S 8.6-50 MG TAB PO SCH (20:19)
[2019-02-12 06:18] LABS: Anion Gap 13 mmol/L (10-20); BUN (Urea Nitrogen) 22 mg/dL (8.4-25.7); Calc. Creatinine Clearance 63 mL/min (70-130); Calcium 8.8 mg/dL (7.8-10.44); Carbon Dioxide 23 mmol/L (23-31); Chloride 106 mmol/L (98-107); Estimated GFR-MDRD 66; Glucose 99 mg/dL (83-110); Sodium 138 mmol/L (136-145)
[2019-02-12] MEDS: Sodium Chloride 0.9% 1,000 ML IV SCH (06:37)
[2019-02-12] MEDS: Carvedilol 3.125 MG TAB PO SCH (09:18)
[2019-02-12] MEDS: Aspirin 325 mg Enteric Coated Tablet PO SCH (09:20)
[2019-02-12] MEDS: Senokot S 8.6-50 MG TAB PO SCH ×2 (09:20→20:30)
[2019-02-12] MEDS: Lisinopril/Hydrochlorothiazide 20 mg/12.5 mg Tablet PO SCH (09:20)
[2019-02-12] MEDS: Amlodipine 10 MG TAB PO SCH (09:20)
[2019-02-12] MEDS: hydrALAZINE 25 MG TAB PO SCH ×3 (09:21→20:27)
[2019-02-12] MEDS: Carvedilol 6.25 MG TAB PO SCH ×2 (09:21→17:51)
--- NOTE | 2019-02-12 13:56 | CT ---
Head CT without contrast CT angiogram of the head: CT angiogram of the neck: 02/07/2019 COMPARISON: None HISTORY: Unable to speak this morning at 8:30 AM. Unable to move right leg. TECHNIQUE: Axial CT imaging at 5 mm intervals from vertex through skull base without contrast. The ax ial CT imaging at 1.25 mm intervals with IV contrast from vertex through lung apices using CT angiogr am protocol with coronal and sagittal 3-D reformatted imaging FINDINGS: Noncontrast enhanced head CT demonstrates no intracranial hemorrhage, midline shift, or mas s effect. Hypodensity associated with remote infarction noted within the deep white matter of the pos terior left frontal lobe measuring 1.3 cm on axial image 20. Posterior hypodensity within the inferio r aspect of the left cerebellar hemisphere on axial image 5 consistent with an additional area of rem ote infarction. Imaged paranasal sinuses/mastoid air cells well-aerated. No displaced calvarial fracture. Limited assessment for an aerodigestive tract lesion is unremarkable. Imaged lung apices unremarkable. No lymphadenopathy noted in the neck. There is extensive atherosclerotic calcification of the aortic arch. Midline sternotomy wires are pre sent. Bovine arch noted. 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 There is no stenosis at the origin of either common carotid artery. Mild stenosis of proxima l right subclavian artery. Multifocal partially calcified plaque noted within proximal right subclavi an artery and bilateral common carotid arteries. The left vertebral artery appears occluded proximally with distal reconstitution of a markedly hypopl astic left vertebral artery at the axial level of C6 vertebral body. At least moderate if not severe stenosis is seen at the origin of the right vertebral artery. Right v ertebral artery is dominant and otherwise unremarkable. On the basis of NASCET criteria, no hemodynamically significant stenosis is seen involving the common carotid artery on either side. There is proximal and distal left ICA calcified plaque. Mild area of focal stenosis within proximal left internal carotid artery noted on axial image 153. There is a mild degree of stenosis involving the mid and distal right CCA on the basis of noncalcifie d plaque. There is prominent calcified plaque at the origin of the right internal carotid artery. A focal area of stenosis is seen at the origin of the right internal carotid artery estimated at approximately 65- 70%. There is a linear filling defect within the arterial lumen in this region which may represent a shelf like soft plaque, or ulcerated plaque, and or focal dissection. The internal carotid artery on the right distal to this is patent. The internal carotid artery on the right is hypoplastic at the le brenda of the petrous segment. The bilateral internal carotid arteries are heavily diseased in the region of the cavernous segment, especially on the right, with probable hemodynamically significant stenosis involving the cavernous s egment of the right internal carotid artery. The A1 segment on the right is nonopacified which could signify clot or marked hypoplasia. The A2 seg ments and distal TRINITY branches appear patent however secondary to a patent anterior communicating joshua ry. There is a focal area of probable left-sided A2 occlusion on coronal image 39 with distal left-sided A2 reconstitution. The M1 segment appears patent bilaterally. The MCA bifurcation appears patent bilaterally. Proximal M 2 branches appear patent. Review of the osseous structures demonstrates multilevel prominent degenerative change involving the cervical spine with multilevel disc space narrowing and anterior osteophyte formation and bilateral f acet/uncovertebral osteophyte formation. No worrisome lytic or blastic bone lesion is seen. The basilar artery is patent. There is severe stenosis involving the [employer] on the left proximally. Ther e is a patent posterior communicating artery on the left. IMPRESSION: 1. Noncontrast enhanced head CT demonstrates evidence of prior infarctions with no intracranial hemor rhage. 2. Severe stenosis at origin of right internal carotid artery with possible focal dissection versus u lcerated plaque. 3. 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 4. Focal areas of nonopacification right A1 segment and a left A2 segment as detailed above. 5. Severe stenosis of proximal left posterior cerebral artery. 6. Stenosis at the origin of the right vertebral artery. Results discussed with Dr. Peck at 7:15 PM 02/07/2019. Transcribed Date/Time: 02/12/2019 1:56 PM
[2019-02-12] MEDS: Atorvastatin Calcium 40 MG TAB PO SCH (20:27)
--- NOTE | 2019-02-12 22:09 | PDOC.PN ---
- Subjective Encounter Start Date: 02/12/19 Encounter Start Time: 10:45 Patient seen and examined for TIA/Carotid stenosis/NSVT. No CP/new focal deficits. No new complaints. No overnight events - Objective Resuscitation Status - Order Detail: 02/07/19 23:08 Resuscitation Status Routine Resuscitation Status: FULL: Full Resuscitation MAR Reviewed: Yes Vital Signs & Weight: Vital Signs (12 hours) Temp Pulse Resp BP BP Pulse Ox 02/12/19 20:12 98.4 F 61 20 171/81 H 96 02/12/19 16:00 98.4 F 56 L 16 152/69 H 98 02/12/19 15:54 72 02/12/19 11:45 98.3 F 72 16 170/74 H 98 Weight Weight 165 lb 4.8 oz I&O: 02/11/19 02/12/19 02/13/19 06:59 06:59 06:59 Intake Total 2730 2339 1690 Output Total 700 Balance 2030 2339 1690 Result Diagrams: 02/11/19 05:42 02/12/19 05:22 EKG Reviewed by me: Yes (ST) Phys Exam - Physical Examination Constitutional: NAD Respiratory: no wheezing, no rhonchi Cardiovascular: RRR, no rub Gastrointestinal: soft, non-tender, positive bowel sounds Musculoskeletal: no edema Neurological: moves all 4 limbs Psychiatric: A&O x 3 Dx/Plan - Plan DVT proph w/SCDs 1. TIA 2. R ICA stenosis 3. SUSY on CKD 2/Hyponatremia - improving 4. NSVT 5. PVD 6. CAD 7. HLD 8. Tob dep - counselled. PLAN: Cont ASA/Statins/Coreg/Amlodipine Cont Hydralazine CEA in AM Cont other meds as below Review of Systems - Review of Systems Respiratory: negative: Cough, Dry, Shortness of Breath, Hemoptysis, SOB with Excertion, Pleuritic Pain, Sputum, Wheezing Cardiovascular: negative: chest pain, palpitations, orthopnea, paroxysmal nocturnal dyspnea, edema, light headedness, other Gastrointestinal: negative: Nausea, Vomiting, Abdominal Pain, Diarrhea, Constipation, Melena, Hematochezia, Other - Medications/Allergies Allergies/Adverse Reactions: Allergies Allergy/AdvReac Type Severity Reaction Status Date / Time clopidogrel [From Plavix] Allergy Intermediate ITCHING Verified 12/22/17 13:36 Medications: Current Medications Acetaminophen (Tylenol) 650 mg PO Q4H PRN PRN Reason: Headache/Fever/Mild Pain (1-3) Amlodipine Besylate (Norvasc) 10 mg PO DAILY [facility] Last Admin: 02/12/19 09:20 Dose: 10 mg Aspirin (Ecotrin) 325 mg PO DAILY [facility] Last Admin: 02/12/19 09:20 Dose: 325 mg Atorvastatin Calcium (Lipitor) 80 mg PO HS [facility] Last Admin: 02/12/19 20:27 Dose: 80 mg Carvedilol (Coreg) 6.25 mg PO BID-WM [facility] Last Admin: 02/12/19 17:51 Dose: 6.25 mg Lisinopril/HCTZ (Prinizide 20-12.5) 1 tab PO DAILY [facility] Last Admin: 02/12/19 09:20 Dose: 1 tab Hydralazine HCl (Apresoline) 10 mg SLOW IVP Q4H PRN PRN Reason: SBP Greater Than 180 Hydralazine HCl (Apresoline) 25 mg PO TID [facility] Last Admin: 02/12/19 20:27 Dose: 25 mg Sodium Chloride (Normal Saline 0.9%) 1,000 mls @ 50 mls/hr IV .Q20H [facility] Last Admin: 02/12/19 06:37 Dose: 1,000 mls Polyethylene Glycol (Miralax) 17 gm PO DAILY PRN PRN Reason: Constipation Last Admin: 02/11/19 12:11 Dose: 17 gm Senna/Docusate Sodium (Senokot S) 1 tab PO BID [facility] Last Admin: 02/12/19 20:30 Dose: Not Given Sodium Chloride (Flush - Normal Saline) 10 ml IVF PRN PRN PRN Reason: Saline Flush Last Admin: 02/12/19 20:28 Dose: 10 ml
[2019-02-13] MEDS: Sodium Chloride 0.9% 1,000 ML IV SCH ×3 (01:17→15:30)
[2019-02-13] MEDS: Carvedilol 6.25 MG TAB PO SCH ×2 (05:04→17:30)
[2019-02-13] MEDS ORDERED: Fentanyl 100 MCG/2 ML VIAL ONE (06:33)
[2019-02-13] MEDS ORDERED: Midazolam HCl 2 mg/2 ml Vial ONE (06:33)
[2019-02-13] MEDS ORDERED: Bupivacaine HCl 0.5%/Epinephrine 1:200,000/PF 30 ml Vial ONE (06:37)
[2019-02-13] MEDS ORDERED: Heparin 5,000 UNITS/ML VIAL ONE (06:37)
[2019-02-13] MEDS ORDERED: Protamine Sulfate 50 MG/5 ML VIAL ONE (06:37)
[2019-02-13] MEDS ORDERED: CEFAZOLIN 2 GM in Premix Bag 1 BAG IVPB SCH (07:15)
[2019-02-13] MEDS ORDERED: Lidocaine 1% (PF) 30 ML VIAL ONE (07:42)
[2019-02-13] MEDS ORDERED: SUGAMMADEX SODIUM 200 MG/2 ML VIAL ONE (09:29)
[2019-02-13] MEDS ORDERED: Ondansetron HCl/PF 4 MG/2 ML Vial IVP PRN (09:54)
[2019-02-13] MEDS ORDERED: Ondansetron PF 4 MG/2 ML Vial IVP PRN (10:29)
[2019-02-13] MEDS ORDERED: HYDROcodone/Acetaminophen 5/325 mg Tablet PO PRN ×2 (10:29)
[2019-02-13] MEDS ORDERED: Acetaminophen 325 MG TAB PO PRN (10:29)
[2019-02-13] MEDS: hydrALAZINE 20 MG/ML VIAL SLOW IVP PRN ×2 (10:58→13:18)
[2019-02-13] MEDS: Amlodipine 10 MG TAB PO SCH (11:42)
[2019-02-13] MEDS: Lisinopril/Hydrochlorothiazide 20 mg/12.5 mg Tablet PO SCH (11:43)
[2019-02-13] MEDS: hydrALAZINE 25 MG TAB PO SCH ×3 (11:43→21:40)
[2019-02-13] MEDS: Senokot S 8.6-50 MG TAB PO SCH ×2 (11:44→21:41)
[2019-02-13] MEDS: Aspirin 325 mg Enteric Coated Tablet PO SCH (11:44)
--- NOTE | 2019-02-13 11:49 | OP ---
DATE OF PROCEDURE: 02/13/2019 PROCEDURE PERFORMED: Left carotid endarterectomy. PREOPERATIVE DIAGNOSIS: Symptomatic left carotid stenosis. POSTOPERATIVE DIAGNOSIS: Symptomatic left carotid stenosis. ANESTHESIA: General endotracheal anesthesia. INDICATIONS: The patient is a 73-year-old man with an extensive history of vascular disease. He was soon due for annual carotid surveillance when he presented with an episode of spastic right leg weakness and aphasia that resolved spontaneously in speaking with him. He has had several episodes of similar right leg symptoms over the last month, although he had never had any speech involvement. He had no other localizing symptoms. CT angiography demonstrated extensive plaquing in both carotid systems, worse in the right than on the left. At the very proximal left internal carotid artery, there appeared to be a focal modest stenosis associated with ulcerated plaque. There was also near the base of the skull smooth plaque with minimal compromise of the lumen. He is now taken to the operating room for left carotid endarterectomy. FINDINGS: Large internal carotid artery. There was hard plaque at the origin of the internal carotid associated with a modest web-like stenosis and with several shallow ulcerations within the bulb. There was modestly good backbleeding from the internal carotid. Pre-shunt clamp time was 8 minutes. Shunt time was 34 minutes. Post-shunt clamp time was 2 minutes. NARRATIVE REPORT: After informed consent was obtained, the patient was taken to the operating room, placed in the supine position on the operating table. After the induction of general anesthesia, the patient's neck was extended and rotated towards the right. His left neck was then prepped and draped in sterile fashion. An oblique incision was made in a skin crease on the left neck using a scalpel and electrocautery. The dissection was carried through the subcutaneous tissue and platysma, anterior medial to the sternocleidomastoid muscle and internal jugular vein. The facial vein was ligated and divided. The common carotid artery was dissected free from the sheath from the vagus nerve and looped with a vessel loop. The dissection was carried distally along the plane of Leriche. The ansa cervicalis in the sling vessels were ligated and divided. The external carotid system was looped and masked with a vessel loop. The internal carotid was isolated and the vagus was gently teased off the carotid system. After adequate circulation time of heparin, the internal carotid, common carotid, and external carotid systems were sequentially occluded. A longitudinal arteriotomy was made in the distal common carotid artery with an 11 blade scalpel and was extended proximally and distally with Valdez scissors. An endarterectomy plane was developed at the level of the bulb, plaque was transected at the common carotid level everted from the external carotid system and then broken off distally in the internal carotid. There was not a clean feather and the nature of the plaque at that level was such that I did not anticipate being able to get it simply feather. Fine Valdez scissors were used to transect the plaque near the distal extent of the arteriotomy and then longitudinally oriented 7-0 Prolene mattress sutures were used to tack down the plaque. The endarterectomy bed was forcefully irrigated and inspected. A small amount of remaining debris was removed and the endarterectomy bed was again inspected. Forceful irrigation being applied particularly to the proximal and distal transection points. An intraluminal carotid shunt was inserted first distally in the internal carotid and then proximally in the common carotid, aspirating on the side port of the sternum for allowing antegrade flow through it into the internal carotid system. The endarterectomy bed was again inspected and then the arteriotomy was closed with running 6-0 Prolene suture taken from either apex with about a half a cm of arteriotomy allowed to sew at the level of the bulb. The shunt was clamped and removed and vascular control reestablished on the origin of the internal carotid and on the common carotid using vessel loops. The remaining arteriotomy was sewn. The vessels were forward and back bled for flushing of any air or residual debris out the arteriotomy or into the external carotid system. The suture line was secured. Antegrade flow was allowed first into the external carotid and then into the internal carotid. The suture line was inspected for hemostasis. One surgical point of bleeding was controlled with a bevrsh-de-iibsy 7-0 Prolene suture and the wound was packed off. After several minutes, there were still a little bit of oozing from the dissection bed on the carotid and it was elected to partially reverse the heparin with half dose of protamine. When hemostasis was adequate, the platysma was reapproximated with running 3-0 Vicryl and the skin was closed with a running 5-0 Vicryl subcuticular suture and Steri-Strips. The wound was dressed. The patient was awakened and extubated in the operating room and taken to the recovery area in stable condition, moving all extremities to command. Job ID: [id number]
--- NOTE | 2019-02-13 13:14 | PDOC.PN ---
- Subjective Encounter Start Date: 02/13/19 Encounter Start Time: 09:45 Patient seen and examined. No new complaints. No overnight events - Objective Resuscitation Status - Order Detail: 02/07/19 23:08 Resuscitation Status Routine Resuscitation Status: FULL: Full Resuscitation MAR Reviewed: Yes Vital Signs & Weight: Vital Signs (12 hours) Temp Pulse Resp BP BP Pulse Ox 02/13/19 12:32 63 19 02/13/19 12:00 98.2 F 02/13/19 11:43 66 02/13/19 11:42 64 173/65 H 02/13/19 10:58 66 02/13/19 10:48 100 02/13/19 03:32 98.2 F 66 20 146/68 H 99 Weight Weight 165 lb 4.8 oz Most Recent Monitor Data Heart Rate from ECG 65 NIBP 165/62 NIBP BP-Mean 96 Respiration from ECG 23 SpO2 100 I&O: 02/12/19 02/13/19 02/14/19 06:59 06:59 06:59 Intake Total 2339 1690 120 Balance 2339 1690 120 Result Diagrams: 02/11/19 05:42 02/12/19 05:22 EKG Reviewed by me: Yes (nsr) Phys Exam - Physical Examination Constitutional: NAD HEENT: PERRLA, moist MMs, sclera anicteric Neck: no JVD, supple Respiratory: no wheezing, no rales, no rhonchi, clear to auscultation bilateral Cardiovascular: RRR, no significant murmur, no rub Gastrointestinal: soft, non-tender, no distention, positive bowel sounds Musculoskeletal: no edema, pulses present Neurological: non-focal, normal sensation Lymphatic: no nodes Psychiatric: normal affect, A&O x 3 Skin: no rash, normal turgor Dx/Plan (1) Carotid stenosis Code(s): I65.29 - OCCLUSION AND STENOSIS OF UNSPECIFIED CAROTID ARTERY Status : Acute (2) TIA (transient ischemic attack) Code(s): G45.9 - TRANSIENT CEREBRAL ISCHEMIC ATTACK, UNSPECIFIED Status: Acute Comment: will continue aspirin and statin (3) CAD (coronary artery disease) Code(s): I25.10 - ATHSCL HEART DISEASE OF [place] CORONARY ARTERY W/O ANG PCTRS Status: Chronic Comment: stable (4) Dyslipidemia Code(s): E78.5 - HYPERLIPIDEMIA, UNSPECIFIED Status: Chronic Comment: continue statin (5) Tobacco abuse Code(s): Z72.0 - TOBACCO USE Status: Chronic Comment: on nicotine patch (6) SUSY (acute kidney injury) Code(s): N17.9 - ACUTE KIDNEY FAILURE, UNSPECIFIED Status: Resolved (7) Hyponatremia Code(s): E87.1 - HYPO-OSMOLALITY AND HYPONATREMIA Status: Resolved Comment: - Plan cont current plan of care * medication reviewed as below * symptomatic treatment * s/o surgery * monitor in CCU. Review of Systems - Review of Systems ENT: negative: Ear Pain, Ear Discharge, Nose Pain, Nose Discharge, Nose Congestion, Mouth Pain, Mouth Swelling, Throat Pain, Throat Swelling, Other Respiratory: negative: Cough, Dry, Shortness of Breath, Hemoptysis, SOB with Excertion, Pleuritic Pain, Sputum, Wheezing Cardiovascular: negative: chest pain, palpitations, orthopnea, paroxysmal nocturnal dyspnea, edema, light headedness, other Gastrointestinal: negative: Nausea, Vomiting, Abdominal Pain, Diarrhea, Constipation, Melena, Hematochezia, Other Genitourinary: negative: Dysuria, Frequency, Incontinence, Hematuria, Retention , Other Musculoskeletal: negative: Neck Pain, Shoulder Pain, Arm Pain, Back Pain, Hand Pain, Leg Pain, Foot Pain, Other Skin: negative: Rash, Lesions, Rocael, Bruising, Other - Medications/Allergies Allergies/Adverse Reactions: Allergies Allergy/AdvReac Type Severity Reaction Status Date / Time clopidogrel [From Plavix] Allergy Intermediate ITCHING Verified 12/22/17 13:36 Medications: Current Medications Acetaminophen (Tylenol) 650 mg PO Q4H PRN PRN Reason: Headache/Fever/Mild Pain (1-3) Acetaminophen (Tylenol) 650 mg PO Q4H PRN PRN Reason: Fever > 101 or headache Hydrocodone Bitart/Acetaminophen ([place] 5/325) 1 tab PO Q4H PRN PRN Reason: Mild Pain (1-3) Hydrocodone Bitart/Acetaminophen ([place] 5/325) 2 tab PO Q4H PRN PRN Reason: Moderate Pain (4-6) Albuterol/Ipratropium (Duoneb) 3 ml NEB [id number] PRN PRN Reason: SHORTNESS OF BREATH Albuterol/Ipratropium (Duoneb) 3 ml NEB [id number] [facility] Last Admin: 02/13/19 12:32 Dose: 3 ml Amlodipine Besylate (Norvasc) 10 mg PO DAILY [facility] Last Admin: 02/13/19 11:42 Dose: 10 mg Aspirin (Ecotrin) 325 mg PO DAILY [facility] Last Admin: 02/13/19 11:44 Dose: 325 mg Atorvastatin Calcium (Lipitor) 80 mg PO HS [facility] Last Admin: 02/12/19 20:27 Dose: 80 mg Carvedilol (Coreg) 6.25 mg PO BID-WM [facility] Last Admin: 02/13/19 05:04 Dose: 6.25 mg Lisinopril/HCTZ (Prinizide 20-12.5) 1 tab PO DAILY [facility] Last Admin: 02/13/19 11:43 Dose: 1 tab Hydralazine HCl (Apresoline) 10 mg SLOW IVP Q4H PRN PRN Reason: SBP Greater Than 180 Last Admin: 02/13/19 10:58 Dose: 10 mg Hydralazine HCl (Apresoline) 25 mg PO TID [facility] Last Admin: 02/13/19 11:43 Dose: 25 mg Sodium Chloride (Normal Saline 0.9%) 1,000 mls @ 100 mls/hr IV .Q10H [facility] Last Admin: 02/13/19 11:49 Dose: 1,000 mls Ondansetron HCl (Zofran) 4 mg IVP Q6H PRN PRN Reason: Nausea/Vomiting Polyethylene Glycol (Miralax) 17 gm PO DAILY PRN PRN Reason: Constipation Last Admin: 02/11/19 12:11 Dose: 17 gm Senna/Docusate Sodium (Senokot S) 1 tab PO BID [facility] Last Admin: 02/13/19 11:44 Dose: 1 tab Sodium Chloride (Flush - Normal Saline) 10 ml IVF PRN PRN PRN Reason: Saline Flush Last Admin: 02/12/19 20:28 Dose: 10 ml
[2019-02-13] MEDS ORDERED: ePHEDrine 50 MG/ML VIAL ONE (13:51)
[2019-02-13] MEDS ORDERED: Heparin 10,000 UNITS/ 10 ML VIAL ONE (13:51)
[2019-02-13] MEDS ORDERED: Lidocaine 1% PF 5 ML VIAL ONE ×2 (13:51)
[2019-02-13] MEDS ORDERED: PROPOFOL 200 MG/20 ML VIAL ONE (13:51)
[2019-02-13] MEDS ORDERED: Vecuronium 10 MG VIAL ONE (13:51)
[2019-02-13] MEDS ORDERED: PHENYLEPHRINE-NS 100 MCG/ML 10 ML SYRINGE ONE (13:51)
[2019-02-13] MEDS ORDERED: Enalaprilat Dihydrate 1.25 MG/ML VIAL SLOW IVP SCH (17:45)
[2019-02-13] MEDS: Atorvastatin Calcium 40 MG TAB PO SCH (21:38)
[2019-02-13] MEDS: Enalaprilat Dihydrate 1.25 MG/ML VIAL SLOW IVP SCH (21:38)
[2019-02-14] MEDS: Enalaprilat Dihydrate 1.25 MG/ML VIAL SLOW IVP SCH ×3 (01:59→08:45)
[2019-02-14 06:22] VITALS: BP 161/57
[2019-02-14] MEDS: Sodium Chloride 0.9% 1,000 ML IV SCH (06:28)
[2019-02-14] MEDS: Carvedilol 6.25 MG TAB PO SCH (08:44)
[2019-02-14] MEDS: Aspirin 325 mg Enteric Coated Tablet PO SCH (08:45)
[2019-02-14] MEDS: Amlodipine 10 MG TAB PO SCH (08:45)
[2019-02-14] MEDS: hydrALAZINE 25 MG TAB PO SCH (08:45)
[2019-02-14] MEDS: Senokot S 8.6-50 MG TAB PO SCH (08:46)
[2019-02-14] MEDS: Lisinopril/Hydrochlorothiazide 20 mg/12.5 mg Tablet PO SCH (08:46)
[2019-02-14 09:34] VITALS: TEMP 98.4
[2019-02-14 09:34] LABS: Actual Bicarbonate (HCO3a) 24.5 mEq/L (22-28); Analyzer IN Cardio OR; Base Excess (BEa) -1.8 mEq/L (-2.0 to +3.0); Calcium, Ionized 1.16 mmol/L (1.12-1.30); Hemoglobin (Hb) 11.6 g/dL (14.0-18.0); O2 Tension (PaO2) 87.5 mmHg (> 70.0); Potassium - ABG Lab 3.86 mmol/L (3.70-5.30); pH, Arterial 7.33 (7.35-7.45)
[2019-02-14 09:36] LABS: Puncture Site ALINE
--- NOTE | 2019-02-14 13:44 | PDOC.PN ---
- Subjective Encounter Start Date: 02/14/19 Encounter Start Time: 10:30 -: old records requested/rev Patient seen and examined. No new complaints. No overnight events - Objective Resuscitation Status - Order Detail: 02/07/19 23:08 Resuscitation Status Routine Resuscitation Status: FULL: Full Resuscitation MAR Reviewed: Yes Vital Signs & Weight: Vital Signs (12 hours) Temp Pulse BP Pulse Ox 02/14/19 08:46 68 161/57 H 02/14/19 08:45 68 161/57 H 02/14/19 08:44 161/57 H 02/14/19 08:00 98.4 F 93 L 02/14/19 06:22 161/57 H 02/14/19 01:59 156/51 H Weight Weight 165 lb 4.8 oz Most Recent Monitor Data Heart Rate from ECG 74 NIBP 160/59 NIBP BP-Mean 92 Respiration from ECG 19 SpO2 98 I&O: 02/13/19 02/14/19 02/15/19 06:59 06:59 06:59 Intake Total 1690 1928 480 Output Total 1950 600 Balance 1690 -22 -120 Result Diagrams: 02/11/19 05:42 02/12/19 05:22 EKG Reviewed by me: Yes Phys Exam - Physical Examination Constitutional: NAD HEENT: PERRLA, moist MMs, sclera anicteric Neck: no JVD, supple Respiratory: no wheezing, no rales, no rhonchi Cardiovascular: RRR, no significant murmur, no rub Gastrointestinal: soft, non-tender, no distention, positive bowel sounds Musculoskeletal: no edema, pulses present Neurological: non-focal, normal sensation Psychiatric: normal affect, A&O x 3 Dx/Plan (1) Carotid stenosis Code(s): I65.29 - OCCLUSION AND STENOSIS OF UNSPECIFIED CAROTID ARTERY Status : Acute (2) TIA (transient ischemic attack) Code(s): G45.9 - TRANSIENT CEREBRAL ISCHEMIC ATTACK, UNSPECIFIED Status: Acute Comment: will continue aspirin and statin (3) CAD (coronary artery disease) Code(s): I25.10 - ATHSCL HEART DISEASE OF [place] CORONARY ARTERY W/O ANG PCTRS Status: Chronic Comment: stable (4) Dyslipidemia Code(s): E78.5 - HYPERLIPIDEMIA, UNSPECIFIED Status: Chronic Comment: continue statin (5) Tobacco abuse Code(s): Z72.0 - TOBACCO USE Status: Chronic Comment: on nicotine patch (6) SUSY (acute kidney injury) Code(s): N17.9 - ACUTE KIDNEY FAILURE, UNSPECIFIED Status: Resolved (7) Hyponatremia Code(s): E87.1 - HYPO-OSMOLALITY AND HYPONATREMIA Status: Resolved Comment: - Plan cont current plan of care * medication reviewed as below * symptomatic treatment * see my discharge summery. Review of Systems - Review of Systems ENT: negative: Ear Pain, Ear Discharge, Nose Pain, Nose Discharge, Nose Congestion, Mouth Pain, Mouth Swelling, Throat Pain, Throat Swelling, Other Respiratory: negative: Cough, Dry, Shortness of Breath, Hemoptysis, SOB with Excertion, Pleuritic Pain, Sputum, Wheezing Cardiovascular: negative: chest pain, palpitations, orthopnea, paroxysmal nocturnal dyspnea, edema, light headedness, other Gastrointestinal: negative: Nausea, Vomiting, Abdominal Pain, Diarrhea, Constipation, Melena, Hematochezia, Other Genitourinary: negative: Dysuria, Frequency, Incontinence, Hematuria, Retention , Other Musculoskeletal: negative: Neck Pain, Shoulder Pain, Arm Pain, Back Pain, Hand Pain, Leg Pain, Foot Pain, Other - Medications/Allergies Allergies/Adverse Reactions: Allergies Allergy/AdvReac Type Severity Reaction Status Date / Time clopidogrel [From Plavix] Allergy Intermediate ITCHING Verified 12/22/17 13:36
--- NOTE | 2019-02-14 14:00 | DIS ---
DATE OF ADMISSION: 02/08/2019 DATE OF DISCHARGE: 02/14/2019 PRIMARY CARE PHYSICIAN: La Yan. DISCHARGE DISPOSITION: Home. PRIMARY DISCHARGE DIAGNOSES: 1. Transient ischemic attack. 2. Carotid stenosis. 3. Venous thromboembolism. 4. Acute kidney injury. 5. Hyponatremia. 6. Status post carotid endarterectomy. SECONDARY DISCHARGE DIAGNOSES: Tobacco abuse disorder, dyslipidemia, coronary artery disease, hypertension. PRIMARY PROCEDURE/OPERATION: Carotid endarterectomy, radiological investigation, CT [place], CT angiography, MRI brain, echocardiography. SIGNIFICANT LABORATORY DATA: Hemoglobin 12.3. INR 1.1. Creatinine 1.10. DISCHARGE MEDICATIONS: 1. Aspirin 325 mg p.o. daily. 2. Lipitor 40 mg p.o. daily. 3. Coreg 6.25 mg b.i.d. 4. Vitamin D3 of 5000 units p.o. daily. 5. Magnesium 400 mg p.o. daily. 6. Procardia XL 30 mg daily. CONTRAINDICATION: None. CODE STATUS: Full code. INPATIENT DIRECTOR TEEN POST: Dr. Gonzalez was following while in hospital. Dr. Silva was following while in hospital. TEST RESULT PENDING ON DISCHARGE: None. ALLERGIES: PLAVIX. DISCHARGE PLAN: Posthospital, the patient will follow up with Dr. Gonzalez as instructed. HOSPITAL COURSE: A 73-year-old male, who was admitted by Dr. Cowart. Please see her H and P for further details. The patient was admitted for TIAs. The patient had a TIA workup and found with significant carotid disease. Cardiovascular surgeon was consulted and they did a carotid endarterectomy. Cardiology was also following while in hospital. After carotid endarterectomy, the patient was observed in ICU for close monitoring and subsequently, the patient was discharged today. All new medication prescription given and necessary patient education was given about medication. I have seen and examined the patient at bedside today. Please see my progress note from today for further details. Job ID: [id number]
== END 2019-02-14 10:00 | disposition home or self-care (01) | DRG 38 ==
LOC: ERS 18:15 → 2SE 21:37 → OBSVTOIN 02-08 10:09 → CCU 02-13 08:03
PROVIDERS: ADMIT Family Medicine; ATTEND Family Medicine
PROC: 03CL0ZZ Extirpation of Matter from Left Internal Carotid Artery, Open Approach (ICD-10-PCS; principal; 2019-02-13)
DX: I65.22 Occlusion and stenosis of left carotid artery (principal); N17.9 Acute kidney failure, unspecified; E87.1 Hypo-osmolality and hyponatremia; I47.2 Ventricular tachycardia; E78.5 Hyperlipidemia, unspecified; F17.200 Nicotine dependence, unspecified, uncomplicated; I25.10 Atherosclerotic heart disease of native coronary artery without angina pectoris; N18.2 Chronic kidney disease, stage 2 (mild); I12.9 Hypertensive chronic kidney disease with stage 1 through stage 4 chronic kidney disease, or unspecified chronic kidney disease; Z79.899 Other long term (current) drug therapy; Z79.82 Long term (current) use of aspirin; Z86.79 Personal history of other diseases of the circulatory system; Z88.8 Allergy status to other drugs, medicaments and biological substances
CPT/HCPCS: 36415; 36416; 70496; 70498; 70551; 80048; 80053; 80061; 82550; 82805; 83735; 84484; 85025; 87081; 93005; 93306; 94640; J0360; J0670; J1642; J1644; J1650; J2001; J2250; J2704; J2720; J3010; J3490; J7620; Q9966

== ENCOUNTER 2019-11-15 06:08 | Outpatient (CLI) | payer MEDICARE ==
[2019-11-15 11:24] LABS: Hemoglobin 13.9 g/dL (14.0-18.0); Mean Corpuscular HGB CONC 33.6 g/dL (32.0-36.0); Mean Corpuscular Hemoglobin 31.4 pg (27.0-31.0); Mean Corpuscular Volume 93.4 fL (78.0-98.0); Mean Platelet Volume 7.8 fL (7.4-10.4); Platelet Count 214 thou/uL (130-400); RBC Distribution Width 12.2 % (11.5-14.5); Red Blood Cell (RBC) Count 4.43 mill/uL (4.70-6.10); White Blood Cell (WBC) Count 11.7 thou/uL (4.8-10.8)
[2019-11-15 11:28] LABS: Bacteria/HPF None Seen HPF (None Seen); Bilirubin Negative (Negative); Blood, Urine Negative (Negative); Clarity Clear (Clear); Glucose, Urine (Dipstick) Normal (Negative); Leukocyte Negative Leu/uL (Negative); Nitrite Negative (Negative); Protein, Urine (Dipstick) Negative (Neg-Trace); RBC/HPF 0-3 HPF (0-3); Squamous Epithelial 0-3 HPF (0-3); Urobilinogen Normal mg/dL (Less than 2); WBC/HPF 0-3 HPF (0-3)
[2019-11-15 11:41] LABS: Anion Gap 13 mmol/L (10-20); BUN (Urea Nitrogen) 26 mg/dL (8.4-25.7); Calc. Creatinine Clearance 0 mL/min (70-130); Calcium 9.7 mg/dL (7.8-10.44); Carbon Dioxide 27 mmol/L (23-31); Chloride 100 mmol/L (98-107); Estimated GFR-MDRD 53; Glucose 100 mg/dL (83-110); Potassium 4.4 mmol/L (3.5-5.1); Sodium 136 mmol/L (136-145)
== END 2019-11-15 06:09 | disposition home or self-care (01) ==
LOC: LABBT 06:08
PROVIDERS: ATTEND Urology
DX: Z01.818 Encounter for other preprocedural examination (principal); N40.1 Benign prostatic hyperplasia with lower urinary tract symptoms
CPT/HCPCS: 80048; 81001; 85027; 87086; 93005; 93010

== ENCOUNTER 2019-11-26 06:34 | Day surgery (SDC) | payer MEDICARE ==
[2019-11-15 10:13] VITALS: BMI 22.0
[2019-11-26] MEDS ORDERED: Levofloxacin 500 mg/D5W 100 ml Premix Bag ONE (07:12)
[2019-11-26] MEDS ORDERED: Midazolam HCl 2 mg/2 ml Vial ONE (08:01)
[2019-11-26] MEDS ORDERED: Ketorolac Tromethamine 30 MG/ML VIAL ONE (09:19)
[2019-11-26] MEDS ORDERED: Phenazopyridine HCl 97.5 MG TABLET ONE (09:20)
[2019-11-26] MEDS ORDERED: Oxybutynin 5 MG TAB ONE (09:20)
[2019-11-26] MEDS ORDERED: PROPOFOL 200 MG/20 ML VIAL ONE (10:28)
[2019-11-26] MEDS ORDERED: Lidocaine 1% PF 5 ML VIAL ONE (10:28)
--- NOTE | 2019-11-26 14:09 | OP ---
DATE OF PROCEDURE: 11/26/2019 PREOPERATIVE DIAGNOSIS: Enlarged prostate with lower urinary tract symptoms. POSTOPERATIVE DIAGNOSIS: Enlarged prostate with lower urinary tract symptoms. PROCEDURE: UroLift x4 implants. ANESTHESIA: TIVA. COMPLICATIONS: None. BLOOD LOSS: 10 mL. DESCRIPTION OF PROCEDURE: After informed consent, the patient was taken to the operating room, transferred to the table under his own power. Anesthesia was established. A time-out was performed showing correct patient, site, and procedure. Preoperative antibiotics were administered. He was prepped and draped in the lithotomy position. I began by performing a rectal exam showing a 30 to 35 g prostate without nodules or induration. I then switched gloves and the 20- U[place] cystoscope was inserted through the urethra into the bladder noting obstructing bladder neck with coapting lateral lobes at that point. The bladder was systematically examined, noting no mucosal abnormalities. Both ureteral orifices were normal in appearance. The cystoscopy bridge was replaced with the UroLift delivery device. The first treatment site was the patient's left side approximately 2 cm distal to the bladder neck. The distal tip of the delivery device was then angled laterally approximately 20 degrees of this position to compress the lateral lobe. The trigger was pulled, thereby deploying a needle containing the implant through the prostate. The needle was then retracted, allowing one end of the implant to be delivered to the capsular surface of the prostate. The implant was then tensioned to assure capsular seating and removal of slack monofilament. The device was then angled back toward midline and slowly advanced proximally about 3-4mm until cystoscopic verification of the monofilament being centered in the delivery bay. The urethral end piece was then affixed to the monofilament thereby tailoring the size of the implant. Excess filament was then severed. The delivery device was then readvanced into the bladder. The delivery device was then replaced at the second implant and the same procedure was repeated on the right side near the bladder neck. I then switched to the visual obturator and examined the prostatic urethra noting no distal obstruction, but continued obstruction at the bladder neck. I then placed 2 implants anterior to the first two implants, one on the left, one on the right following a similar technique. Cystoscopy was then repeated revealing no further obstruction. The procedure was completed at this point. The patient was awoken from anesthesia, transferred back to his hospital bed and taken to PACU in stable condition, where he will discharge to home upon recovery. IMPLANT LOCATION: 1. Left proximal prostatic urethra. 2. Right proximal prostatic urethra. 3. Left proximal prostatic urethra - anterior. 4. Right proximal prostatic urethra - anterior. CRITERIA MET: No active UTI. Conservative management failed and surgical intervention is indicated. IPSS 15/5. Prostate volume 30 g. Job ID: [id number] [facility]
== END 2019-11-26 11:02 | disposition home or self-care (01) ==
LOC: SDC 06:34
PROVIDERS: ATTEND Urology
PROC: 0T7D8DZ Dilation of Urethra with Intraluminal Device, Via Natural or Artificial Opening Endoscopic (ICD-10-PCS; principal; 2019-11-26)
DX: N40.1 Benign prostatic hyperplasia with lower urinary tract symptoms (principal); I10 Essential (primary) hypertension; E11.51 Type 2 diabetes mellitus with diabetic peripheral angiopathy without gangrene; E78.5 Hyperlipidemia, unspecified; I25.10 Atherosclerotic heart disease of native coronary artery without angina pectoris; F17.210 Nicotine dependence, cigarettes, uncomplicated; Z79.82 Long term (current) use of aspirin; Z79.899 Other long term (current) drug therapy; Z86.73 Personal history of transient ischemic attack (TIA), and cerebral infarction without residual deficits; Z88.8 Allergy status to other drugs, medicaments and biological substances; Z95.1 Presence of aortocoronary bypass graft
CPT/HCPCS: C1889; J1885; J1956; J2250

== ENCOUNTER 2020-08-20 10:36 | Outpatient (CLI) | payer MEDICARE ==
--- NOTE | 2020-08-20 13:06 | CT ---
CT THORAX NONCONTRAST: Low dose screening DATE: 08/20/2020 HISTORY: 74-year-old male smoker for lung cancer screening COMPARISON: none FINDINGS: At the far medial edge of the anterior segment of the left upper lobe, abutting the edge of the media stinum, there is a round, noncalcified 5 x 6 x 6 mm pulmonary nodule. Sternotomy wires. Atherosclerotic calcification without aneurysm of thoracic aorta. Small thin linear noncalcified densities at the posterior, dependent portion of the lumen of the dist al trachea, extending into right mainstem bronchus, perhaps representing secretions. No high-grade narrowing of tracheobronchial lumen. Clips along anterior edge of heart. No cardiomegaly, pericardial effusion, pleural effusion, pneumothorax, significant bullous disease, g roundglass lesion, or consolidation. Multiple small subpleural irregular densities consistent with multifocal peripheral pulmonary scars a t various locations bilaterally. IMPRESSION: 1) lung RADS category 3 (probably benign, 1-2% chance of malignancy) 2) a 6 mm left upper lobe pulmonary solid nodule. 3.) Recommend 6 month follow low dose CT. 4) string-like material in the lumen of trachea and right mainstem bronchus, consistent with aspirate d secretions.
== END 2020-08-20 10:37 | disposition home or self-care (01) ==
LOC: BICCT 10:36
PROVIDERS: ATTEND Physician Assistant
DX: Z12.2 Encounter for screening for malignant neoplasm of respiratory organs (principal); F17.210 Nicotine dependence, cigarettes, uncomplicated; R91.1 Solitary pulmonary nodule
CPT/HCPCS: G0297